=== PATIENT | female | born 1965 | race Caucasian/White ===

== ENCOUNTER 2017-01-01 10:31 | Day surgery (SDC) | payer MEDICARE, OTHER ==
[2016-12-27 15:17] VITALS: BMI 37.8
[~2017-01-01 10:31] MED LIST: LACTATED RINGERS 1,000 ML IV SCH; LIDOCAINE 1% 20 ML VIAL (10MG/ML) FOR IV START INTRADERMA PRN
[2017-01-01 11:55] VITALS: RESP 16; TEMP 97.9
[2017-01-01] MEDS ORDERED: PROPOFOL 10 MG/ML 20 ML VIAL IV ONE (13:36)
[2017-01-01] MEDS ORDERED: LIDOCAINE 1% INJ 10MG/ML (20 ML MDV) ONE (13:36)
--- NOTE | 2017-01-01 13:39 | P.GSHP ---
History of Present Illness H&P Date: 01/01/17 Chief Complaint: Epigastric pain, diarrhea [id number] female who presents today for EGD colonoscopy. She's had issues of epigastric pain and diarrhea and some left lower quadrant pain. - Constitutional Constitutional: Reports as per HPI Past Medical History Past Medical History: Asthma, COPD, Deep Vein Thrombosis (DVT), Eye Disorder, Fibromyalgia, GERD/Reflux, Hypertension, Osteoarthritis (OA), Rheumatoid Arthritis (RA), Skin Disorder, Sleep Apnea/CPAP/BIPAP Additional Past Medical History / Comment(s): gout, sarcoidosis, glaucoma, migraines, arrhythmia, no cpap used degenerative disk disease, spinal stenosis History of Any Multi-Drug Resistant Organisms: None Reported Past Surgical History: Cholecystectomy, Heart Catheterization Additional Past Surgical History / Comment(s): lung biopsy , LEG AND ABDOMEN BIOPSY Past Anesthesia/Blood Transfusion Reactions: No Reported Reaction Smoking Status: Current every day smoker - Past Family History Mother Family Medical History: COPD, GERD/Reflux, Hypertension, Osteoarthritis (OA) Additional Family Medical History / Comment(s): Mother is 77 yrs old. Father Family Medical History: Hypertension Additional Family Medical History / Comment(s): Father is an amputee of the R leg. Father is 73 yrs old. Brother(s) Family Medical History: Cancer Additional Family Medical History / Comment(s): leukemia Medications and Allergies Home Medications Medication Instructions Recorded Confirmed Type Atenolol [Tenormin] 25 mg PO BID 01/29/14 12/27/16 History Montelukast [Singulair] 10 mg PO DAILY 01/29/14 12/27/16 History Pantoprazole Sodium [Protonix] 40 mg PO BID 01/29/14 01/01/17 History Butalb/Acetaminophen/Caffeine 1 each PO Q12HR PRN 02/15/14 01/01/17 History [Fioricet 50-325-40 mg Tablet] amLODIPine [Norvasc] 10 mg PO DAILY 02/17/15 12/27/16 History Albuterol Nebulized [Ventolin 1 applicate INHALATION DAILY PRN 08/09/15 History Nebulized] Furosemide [Lasix] 20 mg PO DAILY PRN 08/09/15 01/01/17 History DULoxetine HCL [Cymbalta] 30 mg PO BID 12/27/16 01/01/17 History Fexofenadine HCl [Carolyn Allergy] 180 mg PO DAILY 12/27/16 01/01/17 History Levothyroxine Sodium [Synthroid] 50 mcg PO DAILY 12/27/16 12/27/16 History buPROPion HCL [Wellbutrin XL] 150 mg PO DAILY 12/27/16 01/01/17 History busPIRone HCl [Buspar] 10 mg PO BID 12/27/16 01/01/17 History Allergies Allergy/AdvReac Type Severity Reaction Status Date / Time adhesive Allergy Rash/Hives Verified 01/01/17 11:55 Penicillins Allergy Dyspnea, Verified 01/01/17 11:55 itchy, hives Sulfa (Sulfonamide Allergy Confusion, Verified 01/01/17 11:55 Antibiotics) high fever Surgical - Exam Vital Signs Temp Pulse Resp BP Pulse Ox 97.9 F 64 16 155/73 98 01/01/17 11:53 01/01/17 11:53 01/01/17 11:53 01/01/17 11:53 01/01/17 11:53 - General well developed, no distress - Eyes PERRL - Neck no masses - Respiratory normal expansion - Cardiovascular Rhythm: regular - Abdomen Abdomen: soft, non tender Assessment and Plan Plan: GERD, diarrhea, left lower quadrant pain. We'll perform EGD and colonoscopy.
--- NOTE | 2017-01-01 13:55 | P.OP ---
Date of Procedure: 01/01/17 Preoperative Diagnosis: GERD Diarrhea, left lower quadrant pain Postoperative Diagnosis: Antral gastritis Sliding hiatal hernia Mild esophagitis Procedure(s) Performed: EGD Colonoscopy Implants: Anesthesia: MAC Surgeon: Stevan Mckinley Pathology: other (Antrum, esophagus) Condition: stable Disposition: PACU Indications for Procedure: Operative Findings: Description of Procedure: The patient's placed on the endoscopy table in the lateral position. She received IV sedation. The gastroscope some placed oropharynx passed in the esophagus into the stomach. The scope was then placed through the pylorus. The first and second portion of the duodenum appeared normal. Scope was then brought back into the antrum and a biopsies performed. The antrum. Minimal inflamed. The scope was then retroflexed and the remainder of the stomach appeared normal. There was a small sliding hiatal hernia. The GE junction was at 38 cm the distal esophagus appeared inflamed and this was biopsied. The proximal esophagus appeared normal. The scope was withdrawn for patient. Next digital rectal exam was performed. There were a few minor internal and external hemorrhoids. The flexible colonoscope was then placed patient anus passed throughout the entire colon. The ileocecal valve was visualized. The cecum, ascending and transverse colon appeared normal. The descending colon was normal. In the sigmoid colon there were 2 small sessile polyps this was removed the forcep. The scope was then brought back into the rectum and this appeared normal. Scope was withdrawn for patient.
[2017-01-01 14:16] VITALS: BP 122/76; PULSE 62
== END 2017-01-01 14:30 | disposition home or self-care (01) ==
LOC: ORWHC2ENDO 10:31
PROVIDERS: ATTEND Surgery
DX: K29.50 Unspecified chronic gastritis without bleeding (principal); K21.0 Gastro-esophageal reflux disease with esophagitis; K44.9 Diaphragmatic hernia without obstruction or gangrene; K63.5 Polyp of colon; Z86.010 Personal history of colon polyps; J44.9 Chronic obstructive pulmonary disease, unspecified; Z86.718 Personal history of other venous thrombosis and embolism; M79.7 Fibromyalgia; I10 Essential (primary) hypertension; M19.90 Unspecified osteoarthritis, unspecified site; M06.9 Rheumatoid arthritis, unspecified; L98.9 Disorder of the skin and subcutaneous tissue, unspecified; E78.5 Hyperlipidemia, unspecified; G47.33 Obstructive sleep apnea (adult) (pediatric); M10.9 Gout, unspecified; H40.9 Unspecified glaucoma; E07.9 Disorder of thyroid, unspecified; F39 Unspecified mood [affective] disorder; G43.909 Migraine, unspecified, not intractable, without status migrainosus; I49.9 Cardiac arrhythmia, unspecified; F17.200 Nicotine dependence, unspecified, uncomplicated; Z79.899 Other long term (current) drug therapy; Z88.0 Allergy status to penicillin; Z88.2 Allergy status to sulfonamides; Z91.048 Other nonmedicinal substance allergy status
CPT/HCPCS: 88305; 88342; 45380; 43239; J2001; J2704

== ENCOUNTER → 2017-06-24 | Outpatient (CLI) | payer MEDICARE, OTHER ==
--- NOTE | 2017-06-24 10:06 | CT ---
EXAMINATION TYPE: CT abdomen pelvis w con DATE OF EXAM: 06/24/2017 HISTORY: Epigastric pain and nausea CT DLP: 1953.3mGycm Automated Exposure Control for Dose Reduction was Utilized. CONTRAST: CT scan of the abdomen and pelvis is performed with IV Contrast, patient injected with 100 mL of Omni paque 300. COMPARISON: 06/01/2015. FINDINGS: LUNG BASES: Minimally enlarged epicardial lymph node measures 1.2 cm in short axis. LIVER/GB: The hepatic parenchyma is coarsened and mildly heterogenous, most commonly relating to mild hepatic steatosis. Within segment IVb there is a focal wedge-shaped subcapsular area of enhancement without a well-circumscribed measurable mass. This is subtly appreciable on the exam of 06/01/2015 on series 3 image 26 in the same location and therefore this is either thought to relate to a benign fl macrina filling hemangioma or arterial portal shunt. PANCREAS: No significant abnormality is seen. No ductal dilatation. SPLEEN: No significant abnormality is seen. Small splenule is seen adjacent to the [place] spleen. No splenomegaly. ADRENALS: No significant abnormality is seen. No thickening or nodularity. KIDNEYS: Kidneys enhance and excrete symmetrically. BOWEL: No significant abnormality is seen. No evidence of obstruction. UTERUS/ADNEXA: Follicular changes are seen of the ovaries. Uterus is unremarkable. LYMPH NODES: 1.5 cm short axis lymph node is seen in the gastrohepatic ligament, retrospectively lakshmi lar to the exam of 2014. Portal caval lymph node is upper limits of normal measuring 9 mm, unchanged from the prior. Prominent periaortic lymph nodes measure up to 9 mm in short axis on series 3 image 3 6, again retrospectively unchanged from the exam of 2015. Few minimally enlarged lymph nodes anterior to the portal vein are also seen on series 3 image 26, also retrospectively unchanged and back to 20 15. Tiny nonenlarged lymph node in the hepatorenal fossa is also unchanged. OSSEOUS STRUCTURES: Grade 1 anterolisthesis of L4 on L5 is unchanged from the prior and likely degene rative. Mild multilevel degenerative changes of the osseous structures are noted. IMPRESSION: 1. No CT finding is seen to account for patient's clinical symptoms. 2. Coarsened and mildly heterogenous hepatic echotexture most commonly relating to mild hepatic steat osis. Correlate with LFTs. 3. Mildly prominent lymph nodes within the epiphrenic space and within the abdomen, retrospectively s imilar to the exam of 2015 and therefore favored to be benign. Correlation with CBC and differential is recommended to exclude low-grade lymphoma (considered unlikely).
== END | disposition home or self-care (01) ==
LOC: RADCTMAIN 07:39
PROVIDERS: ATTEND Family Medicine
DX: K76.89 Other specified diseases of liver (principal)
CPT/HCPCS: 74177; Q9967

== ENCOUNTER 2017-06-29 16:44 | Emergency (ER) | payer MEDICARE, OTHER ==
[2017-06-29 16:51] VITALS: RESP 18
[2017-06-29] MEDS ORDERED: IPRATROPIUM-ALBUTEROL 3 ML NEB INHALATION STA (17:46)
[2017-06-29] MEDS ORDERED: SODIUM CHLORIDE 0.9% 1,000 ML IV STA (17:46)
[2017-06-29] MEDS ORDERED: methylPREDNISolone SOD SUCCI 125 MG/2 ML VIAL IV STA (17:46)
--- NOTE | 2017-06-29 17:50 | ED ---
Abdominal Pain HPI - General Chief Complaint: Abdominal Pain Stated Complaint: Vomiting, Fever, Not eating Time Seen by Provider: 06/29/17 17:25 Source: patient, RN notes reviewed, old records reviewed Mode of arrival: ambulatory Limitations: no limitations - History of Present Illness Initial Comments: This patient is a 52-year-old female presented to emergency department stay chief complaint of 4 days of nausea, vomiting, diarrhea, productive cough. Patient reports that she had an outpatient computed tomography scan on Friday to check for a cause for her chronic epigastric abdominal pain. She reports that they were told her that everything was benign. Patient states that she has had chills, denies any specific fever. She is concerned she may have the flu. Patient's daughter reports that she had pneumonia a few weeks ago. Patient reports that she has a history of COPD and uses albuterol breathing treatments occasionally but does not use them frequently because it causes her heart to have palpitations. She does complain of some chest discomfort and heaviness. MD Complaint: abdominal pain - Related Data Home Medications Medication Instructions Recorded Confirmed Montelukast [Singulair] 10 mg PO DAILY 01/29/14 06/29/17 Pantoprazole Sodium [Protonix] 40 mg PO DAILY 01/29/14 06/29/17 Butalb/Acetaminophen/Caffeine 1 tab PO Q12HR PRN 02/15/14 06/29/17 [Fioricet 50-325-40 mg Tablet] amLODIPine [Norvasc] 10 mg PO DAILY 02/17/15 06/29/17 Albuterol Nebulized [Ventolin 1 applicate INHALATION DAILY PRN 08/09/15 06/29/17 Nebulized] Furosemide [Lasix] 20 mg PO DAILY PRN 08/09/15 06/29/17 DULoxetine HCL [Cymbalta] 30 mg PO BID 12/27/16 06/29/17 buPROPion HCL [Wellbutrin XL] 150 mg PO DAILY 12/27/16 06/29/17 busPIRone HCl [Buspar] 10 mg PO BID 12/27/16 06/29/17 Atenolol [Tenormin] 50 mg PO BID 06/29/17 06/29/17 Levothyroxine Sodium [Synthroid] 75 mcg PO DAILY 06/29/17 06/29/17 Modafinil [Provigil] 200 mg PO DAILY 06/29/17 06/29/17 Previous Rx's Medication Instructions Recorded Ipratropium-Albuterol Nebulize 3 ml INHALATION Q6H #20 neb 06/29/17 [Duoneb 0.5 mg-3 mg/3 ml Soln] Levofloxacin [Levaquin] 750 mg PO DAILY #5 tab 06/29/17 Ondansetron Odt [Zofran Odt] 4 mg PO Q8HR PRN #15 tab 06/29/17 predniSONE 50 mg PO DAILY #5 tablet 06/29/17 Allergies Allergy/AdvReac Type Severity Reaction Status Date / Time adhesive Allergy Rash/Hives Verified 06/29/17 17:50 Penicillins Allergy Dyspnea, Verified 06/29/17 17:50 itchy, hives Sulfa (Sulfonamide Allergy Confusion, Verified 06/29/17 17:50 Antibiotics) high fever Review of Systems ROS Statement: Those systems with pertinent positive or pertinent negative responses have been documented in the HPI. ROS Other: All systems not noted in ROS Statement are negative. Past Medical History Past Medical History: Asthma, COPD, Deep Vein Thrombosis (DVT), Eye Disorder, Fibromyalgia, GERD/Reflux, Hypertension, Osteoarthritis (OA), Rheumatoid Arthritis (RA), Skin Disorder, Sleep Apnea/CPAP/BIPAP Additional Past Medical History / Comment(s): gout, sarcoidosis, glaucoma, migraines, arrhythmia, no cpap used degenerative disk disease, spinal stenosis History of Any Multi-Drug Resistant Organisms: None Reported Past Surgical History: Cholecystectomy, Heart Catheterization Additional Past Surgical History / Comment(s): lung biopsy , LEG AND ABDOMEN BIOPSY Past Anesthesia/Blood Transfusion Reactions: No Reported Reaction Past Psychological History: Anxiety, Depression Smoking Status: Current every day smoker Past Alcohol Use History: Rare Past Drug Use History: Marijuana - Past Family History Mother Family Medical History: COPD, GERD/Reflux, Hypertension, Osteoarthritis (OA) Additional Family Medical History / Comment(s): Mother is 77 yrs old. Father Family Medical History: Hypertension Additional Family Medical History / Comment(s): Father is an amputee of the R leg. Father is 73 yrs old. Brother(s) Family Medical History: Cancer Additional Family Medical History / Comment(s): leukemia General Exam - General Exam Comments Initial Comments: 52-year-old female. No distress. Limitations: no limitations General appearance: alert, in no apparent distress Head exam: Present: atraumatic, normocephalic, normal inspection Eye exam: Present: normal appearance, PERRL, EOMI. Absent: scleral icterus, conjunctival injection, periorbital swelling ENT exam: Present: normal exam, mucous membranes moist. Absent: normal oropharynx Neck exam: Present: normal inspection, lymphadenopathy (Slightly erythematous oropharynx. Anterior cervical lymphadenopathy.). Absent: tenderness, meningismus Respiratory exam: Present: wheezes, rhonchi. Absent: normal lung sounds bilaterally, rales, stridor Cardiovascular Exam: Present: regular rate, normal rhythm, normal heart sounds. Absent: systolic murmur, diastolic murmur, rubs, gallop, clicks GI/Abdominal exam: Present: soft, tenderness (Minimal epigastric tenderness. No rebound or guarding noted.), normal bowel sounds. Absent: distended, guarding, rebound, rigid Extremities exam: Present: normal inspection, full ROM, normal capillary refill. Absent: tenderness, pedal edema, joint swelling, calf tenderness Back exam: Present: normal inspection Neurological exam: Present: alert, oriented X3, CN II-XII intact Psychiatric exam: Present: normal affect, normal mood Skin exam: Present: warm, dry, intact, normal color. Absent: rash Course Vital Signs 06/29/17 06/29/17 06/29/17 16:47 18:13 19:40 Temperature 98.6 F 98.3 F Pulse Rate 71 64 76 Respiratory 18 18 Rate Blood Pressure 137/65 146/74 O2 Sat by Pulse 98 94 L Oximetry - Reevaluation(s) Reevaluation #1: 06/29/17 19:51 Patient is reevaluated. Resting comfortably in bed. She reports she feels much better at this time. Medical Decision Making - Medical Decision Making This patient is a 52-year-old female presented to emergency department stay chief complaint of 4 days of nausea, vomiting, diarrhea, productive cough. Patient reports that she had an outpatient computed tomography scan on Friday to check for a cause for her chronic epigastric abdominal pain. She reports that they were told her that everything was benign. Patient states that she has had chills, denies any specific fever. Patient has no significant tenderness or guarding on exam of abdomen. She does have wheezing and rhonchi. Given duoneb treatment and CXR and labs obtaiend. CXR within normal limits. LAbs were reviewed and normal. Negative Influenza. PAtient gievn zofran tylenol and reports she feels better. She had improvement of wheezing and rhonchi after treatment. PAtient will be treated for COPD exacerbation and bronchitis with levaquin and Prednisone. Discussed patient could likely have viral sydome and gastritis related to vomiting nad diarrhea. All question answered, return parameters discussed. - Lab Data Result diagrams: 06/29/17 18:18 06/29/17 18:18 Lab Results 06/29/17 06/29/17 06/29/17 Range/Units 18:18 18:18 18:18 WBC 12.6 H (3.8-10.6) k/uL RBC 4.86 (3.80-5.40) m/uL Hgb 13.4 (11.4-16.0) gm/dL Hct 42.1 (34.0-46.0) % MCV 86.6 (80.0-100.0) fL MCH 27.5 (25.0-35.0) pg MCHC 31.8 (31.0-37.0) g/dL RDW 16.3 H (11.5-15.5) % Plt Count 302 (150-450) k/uL Neutrophils % 75 % Lymphocytes % 16 % Monocytes % 4 % Eosinophils % 2 % Basophils % 1 % Neutrophils # 9.5 H (1.3-7.7) k/uL Lymphocytes # 2.1 (1.0-4.8) k/uL Monocytes # 0.5 (0-1.0) k/uL Eosinophils # 0.2 (0-0.7) k/uL Basophils # 0.1 (0-0.2) k/uL Hypochromasia Slight Anisocytosis Slight PT (9.0-12.0) sec INR (<1.2) APTT (22.0-30.0) sec Sodium (137-145) mmol/L Potassium (3.5-5.1) mmol/L Chloride (98-107) mmol/L Carbon Dioxide (22-30) mmol/L Anion Gap mmol/L BUN (7-17) mg/dL Creatinine (0.52-1.04) mg/dL Est GFR (MDRD) Af Amer (>60 ml/min/1.73 sqM) Est GFR (MDRD) Non-Af (>60 ml/min/1.73 sqM) Glucose (74-99) mg/dL Plasma Lactic Acid Immanuel (0.7-2.0) mmol/L Calcium (8.4-10.2) mg/dL Magnesium (1.6-2.3) mg/dL Total Bilirubin (0.2-1.3) mg/dL AST (14-36) U/L ALT (9-52) U/L Alkaline Phosphatase (38-126) U/L Total Creatine Kinase 68 (30-135) U/L CK-MB (CK-2) 0.8 (0.0-2.4) ng/mL CK-MB (CK-2) Rel Index 1.2 Troponin I <0.012 (0.000-0.034) ng/mL NT-Pro-B Natriuret Pep pg/mL Total Protein (6.3-8.2) g/dL Albumin (3.5-5.0) g/dL Urine Color Urine Appearance (Clear) Urine pH (5.0-8.0) Ur Specific Boswell (1.001-1.035) Urine Protein (Negative) Urine Glucose (UA) (Negative) Urine Ketones (Negative) Urine Blood (Negative) Urine Nitrite (Negative) Urine Bilirubin (Negative) Urine Urobilinogen (<2.0) mg/dL Ur Leukocyte Esterase (Negative) Influenza Type A RNA Not Detected (Not Detectd) Influenza Type B (PCR) Not Detected (Not Detectd) 06/29/17 06/29/17 06/29/17 Range/Units 18:18 18:18 18:18 WBC (3.8-10.6) k/uL RBC (3.80-5.40) m/uL Hgb (11.4-16.0) gm/dL Hct (34.0-46.0) % MCV (80.0-100.0) fL MCH (25.0-35.0) pg MCHC (31.0-37.0) g/dL RDW (11.5-15.5) % Plt Count (150-450) k/uL Neutrophils % % Lymphocytes % % Monocytes % % Eosinophils % % Basophils % % Neutrophils # (1.3-7.7) k/uL Lymphocytes # (1.0-4.8) k/uL Monocytes # (0-1.0) k/uL Eosinophils # (0-0.7) k/uL Basophils # (0-0.2) k/uL Hypochromasia Anisocytosis PT (9.0-12.0) sec INR (<1.2) APTT (22.0-30.0) sec Sodium 140 (137-145) mmol/L Potassium 4.1 (3.5-5.1) mmol/L Chloride 104 (98-107) mmol/L Carbon Dioxide 24 (22-30) mmol/L Anion Gap 12 mmol/L BUN 9 (7-17) mg/dL Creatinine 1.01 (0.52-1.04) mg/dL Est GFR (MDRD) Af Amer >60 (>60 ml/min/1.73 sqM) Est GFR (MDRD) Non-Af 57 (>60 ml/min/1.73 sqM) Glucose 126 H (74-99) mg/dL Plasma Lactic Acid Immanuel 1.1 (0.7-2.0) mmol/L Calcium 9.8 (8.4-10.2) mg/dL Magnesium 1.8 (1.6-2.3) mg/dL Total Bilirubin 0.5 (0.2-1.3) mg/dL AST 26 (14-36) U/L ALT 26 (9-52) U/L Alkaline Phosphatase 178 H (38-126) U/L Total Creatine Kinase (30-135) U/L CK-MB (CK-2) (0.0-2.4) ng/mL CK-MB (CK-2) Rel Index Troponin I (0.000-0.034) ng/mL NT-Pro-B Natriuret Pep 201 pg/mL Total Protein 8.0 (6.3-8.2) g/dL Albumin 3.9 (3.5-5.0) g/dL Urine Color Urine Appearance (Clear) Urine pH (5.0-8.0) Ur Specific Boswell (1.001-1.035) Urine Protein (Negative) Urine Glucose (UA) (Negative) Urine Ketones (Negative) Urine Blood (Negative) Urine Nitrite (Negative) Urine Bilirubin (Negative) Urine Urobilinogen (<2.0) mg/dL Ur Leukocyte Esterase (Negative) Influenza Type A RNA (Not Detectd) Influenza Type B (PCR) (Not Detectd) 06/29/17 06/29/17 Range/Units 18:18 19:40 WBC (3.8-10.6) k/uL RBC (3.80-5.40) m/uL Hgb (11.4-16.0) gm/dL Hct (34.0-46.0) % MCV (80.0-100.0) fL MCH (25.0-35.0) pg MCHC (31.0-37.0) g/dL RDW (11.5-15.5) % Plt Count (150-450) k/uL Neutrophils % % Lymphocytes % % Monocytes % % Eosinophils % % Basophils % % Neutrophils # (1.3-7.7) k/uL Lymphocytes # (1.0-4.8) k/uL Monocytes # (0-1.0) k/uL Eosinophils # (0-0.7) k/uL Basophils # (0-0.2) k/uL Hypochromasia Anisocytosis PT 10.4 (9.0-12.0) sec INR 1.1 (<1.2) APTT 24.1 (22.0-30.0) sec Sodium (137-145) mmol/L Potassium (3.5-5.1) mmol/L Chloride (98-107) mmol/L Carbon Dioxide (22-30) mmol/L Anion Gap mmol/L BUN (7-17) mg/dL Creatinine (0.52-1.04) mg/dL Est GFR (MDRD) Af Amer (>60 ml/min/1.73 sqM) Est GFR (MDRD) Non-Af (>60 ml/min/1.73 sqM) Glucose (74-99) mg/dL Plasma Lactic Acid Immanuel (0.7-2.0) mmol/L Calcium (8.4-10.2) mg/dL Magnesium (1.6-2.3) mg/dL Total Bilirubin (0.2-1.3) mg/dL AST (14-36) U/L ALT (9-52) U/L Alkaline Phosphatase (38-126) U/L Total Creatine Kinase (30-135) U/L CK-MB (CK-2) (0.0-2.4) ng/mL CK-MB (CK-2) Rel Index Troponin I (0.000-0.034) ng/mL NT-Pro-B Natriuret Pep pg/mL Total Protein (6.3-8.2) g/dL Albumin (3.5-5.0) g/dL Urine Color Yellow Urine Appearance Clear (Clear) Urine pH 5.5 (5.0-8.0) Ur Specific Boswell 1.002 (1.001-1.035) Urine Protein Negative (Negative) Urine Glucose (UA) Negative (Negative) Urine Ketones Negative (Negative) Urine Blood Negative (Negative) Urine Nitrite Negative (Negative) Urine Bilirubin Negative (Negative) Urine Urobilinogen 0.2 (<2.0) mg/dL Ur Leukocyte Esterase Negative (Negative) Influenza Type A RNA (Not Detectd) Influenza Type B (PCR) (Not Detectd) 06/29/17 18:08 EKG shows normal sinus rhythm. Ventricular rate of 67 bpm. AR interval 200 ms. QRS duration 86 ms. QT QTc is 404/426 ms. No evidence of ST elevation or T-wave inversion. No evidence of intraventricular ventricular arrhythmias. - Radiology Data Radiology results: report reviewed Patient CT from [address] findings to account the patient's clinical symptoms. Coarse and lateral head tenderness hepatic echotexture is most commonly related to mild hepatic steatosis. Correlate with LFTs. Mildly prominent lymph nodes with some epinephrine next pain within the abdomen. Retrospectively similar to examine 2015. Therefore favor to be benign. Correlation with CBC and differential is recommended to exclude low-grade lymphoma. Disposition Clinical Impression: Bronchitis, Nausea & vomiting Disposition: HOME SELF-CARE Condition: Good Instructions: Acute Bronchitis (ED) Additional Instructions: Patient denies to take the medications as prescribed, use your breathing treatments machine at home for continued cough. Continue to take Motrin and Tylenol for pain and fevers. Patient should use the Zofran medicine for nausea. Follow-up with PCP. Return to the emergency department if any alarming signs or symptoms occur. Prescriptions: Ipratropium-Albuterol Nebulize [Duoneb 0.5 mg-3 mg/3 ml Soln] 3 ml INHALATION Q6H #20 neb Levofloxacin [Levaquin] 750 mg PO DAILY #5 tab Ondansetron Odt [Zofran Odt] 4 mg PO Q8HR PRN #15 tab PRN Reason: Pain predniSONE 50 mg PO DAILY #5 tablet Referrals: Arianna Lopes DO [Primary Care Provider] - 1-2 days Time of Disposition: 20:36
[2017-06-29] MEDS ORDERED: ACETAMINOPHEN TAB 500 MG TAB PO STA (18:39)
[2017-06-29] MEDS ORDERED: IBUPROFEN 600 MG TAB PO STA (18:39)
--- NOTE | 2017-06-29 18:40 | XR ---
EXAMINATION TYPE: XR chest 2V DATE OF EXAM: 06/29/2017 COMPARISON: January 29, 2014 HISTORY: Fever. TECHNIQUE: Frontal and lateral views of the chest are obtained. FINDINGS: There is no focal air space opacity, pleural effusion, or pneumothorax seen. The cardiac silhouette size is within normal limits. The osseous structures are intact. IMPRESSION: No acute cardiopulmonary process.
[2017-06-29 18:44] LABS: Anisocytosis Slight; Basophils # (A) 0.1 k/uL (0-0.2); Basophils % (A) 1 %; Eosinophils # (A) 0.2 k/uL (0-0.7); Eosinophils % (A) 2 %; HCT 42.1 % (34.0-46.0); HGB 13.4 gm/dL (11.4-16.0); Hypochromasia Slight; Lymphocytes # (A) 2.1 k/uL (1.0-4.8); Lymphocytes % (A) 16 %; MCH 27.5 pg (25.0-35.0); MCHC 31.8 g/dL (31.0-37.0); MCV 86.6 fL (80.0-100.0); Mean Platelet Volume 8.3; Monocytes # (A) 0.5 k/uL (0-1.0); Monocytes % (A) 4 %; Neutrophils # (A) 9.5 k/uL (1.3-7.7); Neutrophils % (A) 75 %; Platelet Count 302 k/uL (150-450); RBC 4.86 m/uL (3.80-5.40); RDW 16.3 % (11.5-15.5); WBC 12.6 k/uL (3.8-10.6)
[2017-06-29] MEDS ORDERED: ONDANSETRON 4 MG/2 ML VIAL IVP STA (18:47)
[2017-06-29 18:58] LABS: INR 1.1 (<1.2); Partial Thromboplastin Time 24.1 sec (22.0-30.0); Prothrombin Time 10.4 sec (9.0-12.0)
[2017-06-29 18:59] LABS: ALT 26 U/L (9-52); AST 26 U/L (14-36); Albumin 3.9 g/dL (3.5-5.0); Alkaline Phosphatase 178 U/L (38-126); Anion Gap 12 mmol/L; Blood Urea Nitrogen 9 mg/dL (7-17); Calcium 9.8 mg/dL (8.4-10.2); Carbon Dioxide 24 mmol/L (22-30); Chloride 104 mmol/L (98-107); Glucose 126 mg/dL (74-99); Magnesium 1.8 mg/dL (1.6-2.3); Potassium 4.1 mmol/L (3.5-5.1); Sodium 140 mmol/L (137-145); Total Bilirubin 0.5 mg/dL (0.2-1.3)
[2017-06-29 19:09] LABS: Creatine Kinase 68 U/L (30-135)
[2017-06-29 19:23] LABS: Creatine Kinase MB 0.8 ng/mL (0.0-2.4); Troponin I <0.012 ng/mL (0.000-0.034)
[2017-06-29 19:41] VITALS: BP 146/74; PULSE 76; TEMP 98.3
[2017-06-29 20:24] LABS: Appearance,Urine Clear (Clear); Color,Urine Yellow; Glucose,Urine (UA) Negative (Negative); PH, Urine 5.5 (5.0-8.0); Protein,Urine Negative (Negative); Specific Gravity,Urine 1.002 (1.001-1.035)
[2017-06-29 20:25] LABS: Bilirubin,Urine Negative (Negative); Blood,Urine Negative (Negative); Ketones,Urine Negative (Negative); Leukocyte Esterase,Urine Negative (Negative); Nitrite,Urine Negative (Negative); Urobilinogen,Urine 0.2 mg/dL (<2.0)
== END 2017-06-29 20:52 | disposition home or self-care (01) ==
LOC: EC 16:44
DX: J40 Bronchitis, not specified as acute or chronic (principal); R11.2 Nausea with vomiting, unspecified; R19.7 Diarrhea, unspecified; R10.13 Epigastric pain; G89.29 Other chronic pain; R59.0 Localized enlarged lymph nodes; I10 Essential (primary) hypertension; J44.9 Chronic obstructive pulmonary disease, unspecified; K21.9 Gastro-esophageal reflux disease without esophagitis; G47.30 Sleep apnea, unspecified; F32.9 Major depressive disorder, single episode, unspecified; F41.9 Anxiety disorder, unspecified; F17.200 Nicotine dependence, unspecified, uncomplicated; Z79.899 Other long term (current) drug therapy; Z88.0 Allergy status to penicillin; Z88.2 Allergy status to sulfonamides; Z91.09 Other allergy status, other than to drugs and biological substances; Z87.01 Personal history of pneumonia (recurrent); Z90.49 Acquired absence of other specified parts of digestive tract; Z82.5 Family history of asthma and other chronic lower respiratory diseases
CPT/HCPCS: 36415; 94640; 93005; 83880; 80053; 82550; 82553; 83605; 83735; 84484; 85025; 85610; 85730; 81003; 87040; 87502; 71046; 99284; 96374; 96375; 96361 ×3; J2930; J2405

== ENCOUNTER → 2017-07-21 | Outpatient (CLI) | payer MEDICARE, OTHER ==
--- NOTE | 2017-07-21 12:17 | FL ---
EXAMINATION TYPE: FL barium swallow w video DATE OF EXAM: 07/21/2017 COMPARISON: NONE HISTORY: Esophagitis swollen glands. Scar tissue TECHNIQUE: Fluoroscopy. FINDINGS: Fluoroscopic guidance was provided for the procedure performed in conjunction with the [facility] [place] pathology department. Please see complete report forthcoming from the Speech Pathology departmen t. Various consistencies from thin liquid to solids were administered. Fluoroscopy time 1 minute 15 seconds Number of images: 0. No aspiration or penetration was evident. No significant pooling was observed in the vallecula. There was normal propulsion of the bolus. Observation of the swallowing from the esophagus to the stomach was performed with cracker chris km ds. Small bolus appears to hang up within the mid esophagus without stenosis. This transits to the ga stroesophageal junction without hesitancy with thin liquid. A complete esophagram could be performed if additional evaluation is required. IMPRESSION: 1. Normal modified barium swallow.
== END | disposition home or self-care (01) ==
LOC: RADFLMAIN 11:18
PROVIDERS: ATTEND Physician Assistant
DX: K20.9 Esophagitis, unspecified (principal); Z88.2 Allergy status to sulfonamides
CPT/HCPCS: 74230

== ENCOUNTER 2017-10-21 10:13 | Day surgery (SDC) | payer MEDICARE, OTHER ==
[2017-10-17 14:26] VITALS: BMI 36.3
[~2017-10-21 10:13] MED LIST changes: +ONDANSETRON 4 MG/2 ML VIAL IVP PRN
[2017-10-21] MEDS: CYCLOPENTOLATE 1% OPHTH SOLN 2 ML BTL OP ONE ×3 (11:15→11:33)
[2017-10-21 11:16] VITALS: RESP 16; TEMP 97.2
[2017-10-21] MEDS: FLURBIPROFEN 0.03% OPHTH DROPS 2.5 ML BTL OP ONE ×3 (11:18→11:36)
[2017-10-21] MEDS: PHENYLEPHRINE 10% OPHTH DROPS 5 ML BTL OP ONE ×3 (11:21→11:40)
[2017-10-21] MEDS ORDERED: PROPOFOL 10 MG/ML 20 ML VIAL IV ONE (11:57)
[2017-10-21] MEDS ORDERED: LIDOCAINE 1% INJ 10MG/ML (20 ML MDV) ONE (11:57)
[2017-10-21] MEDS ORDERED: TIMOLOL 0.5% OPHTH SOLN (PF) 0.2 ML DROPERETTE RIGHT EYE ONE (11:58)
[2017-10-21] MEDS ORDERED: BALANCED SALT IRRIG SOLN COMB2 15 ML IRRIG.SOLN INTRAOCULA ONE (11:58)
[2017-10-21] MEDS ORDERED: HYALURONATE SODIUM INTRAOCULAR 1 EACH SYRINGE (10MG/ML) INTRAOCULA ONE (11:58)
[2017-10-21] MEDS ORDERED: EPINEPHrine (PF) 0.5 ML in BALANCED SALT IRRIG SOLN COMB2 500 ML IRRIGATION ONE (12:02)
--- NOTE | 2017-10-21 12:22 | P.OP ---
Date of Procedure: 10/21/17 Procedure(s) Performed: PREOPERATIVE DIAGNOSIS: Cataract, right eye. POSTOPERATIVE DIAGNOSIS: Cataract, right eye. OPERATION: Phacoemulsification cataract, right eye. DESCRIPTION OF PROCEDURE: The patient was taken to the preoperative holding area. Intravenous Propofol was given so as to bring about adequate sedation. The following mixture was given for local anesthesia: 5 mL of 2% lidocaine, 5 mL of 0.75% Marcaine, and 1 mL of Wydase. Approximately 4 mL was injected in the retrobulbar space of the surgical eye. Additional 1 mL was then directed to the temporal area of the surgical eye. This was performed to allow adequate neurological block of the facial muscles. The patient was revived and then taken into the operative room. The patient was prepped and draped in the usual sterile manner for the operative eye. A lid speculum was put into position. The conjunctiva was resected back from the limbus in the 12 o'clock position. Bleeding was controlled with electrocautery. A #69 blade was then used and a half-thickness scleral incision approximately 1-mm posterior to the limbus was made on bare sclera. This was shelved in the clear cornea using a crescent knife. Next a 15-degree blade was used to make a stab incision at the 3 o' clock position at the corneolimbal interface. Keratome blade was then used and the superior wound was extended into the anterior chamber. Viscoelastic was injected into the anterior chamber and to maintain its form. Next, a cystotome was used and a continuous anterior capsulotomy was made without difficulty. Hydrodissection using a blunt cannula and BSS was performed. Phaco probe was then employed and a groove extending from 12 to 6 o'clock in the lens was created. A Gonsalo wand was used through the stab incision so as to perform a divide and conquer technique. Next an irrigation aspiration probe was utilized and any residual cortex was removed from the eye. Again, viscoelastic was injected into the anterior chamber. An Vern posterior chamber lens implant was placed in the cartridge and injected into the anterior chamber without difficulty. The SinSporterpilotey hook was utilized to spin the lens into position and this was again performed without any difficulty. The irrigation and aspiration probe was again employed and any residual viscoelastic was removed from the eye. Then BSS was injected into the limbal stab incision and the anterior chamber re-inflated. The conjunctiva was reapproximated using electrocautery. One drop of 0.25% Timoptic was placed over the corneal along with TobraDex ophthalmic ointment. Two sterile patches and a Gustafson eye shield were taped into position. The patient was transported to the recovery room in stable condition. Pathology: none sent Condition: stable Disposition: same day
[2017-10-21] MEDS ORDERED: ACETAMINOPHEN TAB 325 MG TAB PO ONE (12:45)
[2017-10-21 12:46] VITALS: BP 129/67; PULSE 59
[2017-10-21] MEDS ORDERED: GENTAMICIN/PREDNISOL AC OPHTH OINT 3.5GM OPHTHALMIC ONE (23:00)
[2017-10-21] MEDS ORDERED: TIMOLOL 0.5% OPHTH DROPS 5 ML BTL OP ONE (23:00)
[2017-10-21] MEDS ORDERED: BUPIVACAINE (PF) 0.75% 5 ML, HYALURONIDASE, HUMAN RECOMB 150 UNIT, LIDOCAINE 2% (PF) 10... MISCELLANE ONE ×3 (23:00)
== END 2017-10-21 13:17 | disposition home or self-care (01) ==
LOC: OR 10:13
PROVIDERS: ATTEND Ophthalmology
DX: H25.11 Age-related nuclear cataract, right eye (principal); H40.059 Ocular hypertension, unspecified eye; J45.909 Unspecified asthma, uncomplicated; E07.9 Disorder of thyroid, unspecified; K21.9 Gastro-esophageal reflux disease without esophagitis; I25.2 Old myocardial infarction; F17.200 Nicotine dependence, unspecified, uncomplicated; Z88.0 Allergy status to penicillin; Z88.2 Allergy status to sulfonamides; Z91.048 Other nonmedicinal substance allergy status; Z79.890 Hormone replacement therapy; Z79.899 Other long term (current) drug therapy
CPT/HCPCS: 66984; V2632; J3470; J2001 ×2; J0171; J2704

== ENCOUNTER → 2018-01-06 | Day surgery (SDC) | payer MEDICARE, OTHER ==
[2017-12-30 10:50] VITALS: BMI 37.4
[~2018-01-06] MED LIST changes: +BALANCED SALT IRRIG SOLN COMB2 15 ML IRRIG.SOLN INTRAOCULA ONE; +BALANCED SALT IRRIG SOLN COMB2 15 ML IRRIG.SOLN IRRIGATION ONE; +BUPIVACAINE (PF) 0.75% 5 ML, HYALURONIDASE, HUMAN RECOMB 150 UNIT, LIDOCAINE 2% (PF) 10... MISCELLANE ONE; +EPINEPHrine (PF) 0.5 ML in BALANCED SALT IRRIG SOLN COMB2 500 ML IRRIGATION ONE; +GENTAMICIN/PREDNISOL AC OPHTH OINT 3.5GM OPHTHALMIC ONE; +HYALURONATE SODIUM INTRAOCULAR 1 EACH SYRINGE (10MG/ML) INTRAOCULA ONE; +LIDOCAINE 1% (PF) 10MG/ML VIAL SQ ONE; +LIDOCAINE 1% 20 ML VIAL (10MG/ML) FOR IV START INTRADERMA ONE; -LIDOCAINE 1% 20 ML VIAL (10MG/ML) FOR IV START INTRADERMA PRN; -ONDANSETRON 4 MG/2 ML VIAL IVP PRN; +PROPOFOL 10 MG/ML 20 ML VIAL IV ONE; +TIMOLOL 0.5% OPHTH DROPS 5 ML BTL OP ONE
[2018-01-06] MEDS: PHENYLEPHRINE 10% OPHTH DROPS 5 ML BTL OP ONE ×4 (07:59→08:22)
[2018-01-06] MEDS: CYCLOPENTOLATE 1% OPHTH SOLN 2 ML BTL OP ONE ×3 (08:08→08:14)
[2018-01-06] MEDS: FLURBIPROFEN 0.03% OPHTH DROPS 2.5 ML BTL OP ONE ×2 (08:17→08:23)
[2018-01-06 08:20] VITALS: TEMP 98.6
--- NOTE | 2018-01-06 09:40 | P.OP ---
Date of Procedure: 01/06/18 Procedure(s) Performed: PREOPERATIVE DIAGNOSIS: Cataract, left eye. POSTOPERATIVE DIAGNOSIS: Cataract, left eye. OPERATION: Phacoemulsification cataract, left eye. DESCRIPTION OF PROCEDURE: The patient was taken to the preoperative holding area. Intravenous Propofol was given so as to bring about adequate sedation. The following mixture was given for local anesthesia: 5 mL of 2% lidocaine, 5 mL of 0.75% Marcaine, and 1 mL of Wydase. Approximately 4 mL was injected in the retrobulbar space of the surgical eye. Additional 1 mL was then directed to the temporal area of the surgical eye. This was performed to allow adequate neurological block of the facial muscles. The patient was revived and then taken into the operative room. The patient was prepped and draped in the usual sterile manner for the operative eye. A lid speculum was put into position. The conjunctiva was resected back from the limbus in the 12 o'clock position. Bleeding was controlled with electrocautery. A #69 blade was then used and a half-thickness scleral incision approximately 1-mm posterior to the limbus was made on bare sclera. This was shelved in the clear cornea using a crescent knife. Next a 15-degree blade was used to make a stab incision at the 3 o' clock position at the corneolimbal interface. Keratome blade was then used and the superior wound was extended into the anterior chamber. Viscoelastic was injected into the anterior chamber and to maintain its form. Next, a cystotome was used and a continuous anterior capsulotomy was made without difficulty. Hydrodissection using a blunt cannula and BSS was performed. Phaco probe was then employed and a groove extending from 12 to 6 o'clock in the lens was created. A Gonsalo wand was used through the stab incision so as to perform a divide and conquer technique. Next an irrigation aspiration probe was utilized and any residual cortex was removed from the eye. Again, viscoelastic was injected into the anterior chamber. An Vern posterior chamber lens implant was placed in the cartridge and injected into the anterior chamber without difficulty. The Sinhotelsmap.comey hook was utilized to spin the lens into position and this was again performed without any difficulty. The irrigation and aspiration probe was again employed and any residual viscoelastic was removed from the eye. Then BSS was injected into the limbal stab incision and the anterior chamber re-inflated. The conjunctiva was reapproximated using electrocautery. One drop of 0.25% Timoptic was placed over the corneal along with TobraDex ophthalmic ointment. Two sterile patches and a Gustafson eye shield were taped into position. The patient was transported to the recovery room in stable condition. Pathology: none sent Condition: stable Disposition: same day
[2018-01-06 09:45] VITALS: RESP 18
[2018-01-06 10:00] VITALS: BP 125/82; PULSE 61
== END | disposition home or self-care (01) ==
LOC: OR 07:19
PROVIDERS: ATTEND Ophthalmology
DX: H25.12 Age-related nuclear cataract, left eye (principal); H40.059 Ocular hypertension, unspecified eye; I25.10 Atherosclerotic heart disease of native coronary artery without angina pectoris; I10 Essential (primary) hypertension; E07.9 Disorder of thyroid, unspecified; D86.9 Sarcoidosis, unspecified; F17.210 Nicotine dependence, cigarettes, uncomplicated; M79.7 Fibromyalgia; M06.9 Rheumatoid arthritis, unspecified; K21.9 Gastro-esophageal reflux disease without esophagitis; Z79.890 Hormone replacement therapy; Z79.891 Long term (current) use of opiate analgesic; Z79.899 Other long term (current) drug therapy; Z88.0 Allergy status to penicillin; Z88.2 Allergy status to sulfonamides; Z91.09 Other allergy status, other than to drugs and biological substances
CPT/HCPCS: 66984; V2632; J3470; J2001 ×2; J0171; J2704

== ENCOUNTER → 2018-04-20 | Outpatient (CLI) | payer MEDICARE, OTHER | END | disposition home or self-care (01) | LOC: LABWHC1 08:36 | PROVIDERS: ATTEND Physician Assistant | DX: D86.9 Sarcoidosis, unspecified (principal); Z92.241 Personal history of systemic steroid therapy | CPT/HCPCS: 36415; 82533 ==

== ENCOUNTER 2023-05-27 15:59 | Inpatient (IN) | payer MEDICARE, OTHER ==
[2023-05-27] MEDS ORDERED: ASPIRIN 81 MG PO STA (16:46)
[2023-05-27] MEDS ORDERED: DILTIAZEM 5 MG/ML 5 ML VIAL IVP STA (16:46)
[2023-05-27] MEDS ORDERED: DILTIAZEM 125 MG in SODIUM CHLORIDE 0.9% 100 ML IV SCH (17:15)
[2023-05-27 17:29] LABS: Basophils # (A) 0.1 k/uL (0-0.2); Basophils % (A) 1 %; Eosinophils # (A) 0.3 k/uL (0-0.7); Eosinophils % (A) 2 %; HCT 39.1 % (34.0-46.0); HGB 12.6 gm/dL (11.4-16.0); Lymphocytes # (A) 2.3 k/uL (1.0-4.8); Lymphocytes % (A) 18 %; MCH 28.2 pg (25.0-35.0); MCHC 32.2 g/dL (31.0-37.0); MCV 87.5 fL (80.0-100.0); Mean Platelet Volume 9.5; Monocytes # (A) 0.5 k/uL (0-1.0); Monocytes % (A) 4 %; Neutrophils # (A) 9.8 k/uL (1.3-7.7); Neutrophils % (A) 75 %; Platelet Count 232 k/uL (150-450); RBC 4.47 m/uL (3.80-5.40); RDW 14.6 % (11.5-15.5); WBC 13.2 k/uL (3.8-10.6)
--- NOTE | 2023-05-27 17:41 | ED ---
Chest Pain HPI - General Chief Complaint: Chest Pain Stated Complaint: Chest Pain,Sob-AFIB Time Seen by Provider: 05/27/23 16:37 Source: patient Mode of arrival: ambulatory Limitations: no limitations - History of Present Illness Initial Comments: This 58-year-old female presents with complaint of some left-sided chest pain, shortness breath, and fatigue. This is been present over the last day or 2 yard she denies recurrent palpitations but may have had slight palpitations recently. She denies any fevers or chills. She does relate that she was diagnosed with atrial fibrillation recently by her meat boner and slicer. They also felt as though she would require a heart catheterization this is scheduled for 3 days from now. She denies any leg pain or swelling. The chest pain is described as a pressure and is nonradiating. She was placed on Eliquis for her atrial fibrillation. She also currently is on a beta cindy. She denies any fevers or chills. No other complaints or modifying factors. - Related Data Home Medications Medication Instructions Recorded Confirmed Montelukast [Singulair] 10 mg PO QAM 01/29/14 12/30/17 Pantoprazole Sodium [Protonix] 40 mg PO DAILY 01/29/14 12/30/17 Butalb/Acetaminophen/Caffeine 1 tab PO Q12HR PRN 02/15/14 01/06/18 [Fioricet 50-325-40 mg Tablet] amLODIPine [Norvasc] 10 mg PO DAILY 02/17/15 12/30/17 Albuterol Nebulized [Ventolin 1 applicate INHALATION DAILY PRN 08/09/15 12/30/17 Nebulized] Furosemide [Lasix] 20 mg PO DAILY PRN 08/09/15 01/06/18 DULoxetine HCL [Cymbalta] 30 mg PO BID 12/27/16 12/30/17 buPROPion HCL [Wellbutrin XL] 150 mg PO BID 12/27/16 12/30/17 busPIRone HCl [Buspar] 10 mg PO BID PRN 12/27/16 12/30/17 Levothyroxine Sodium [Synthroid] 75 mcg PO DAILY 06/29/17 12/30/17 atenoloL [Tenormin] 50 mg PO BID 06/29/17 12/30/17 ARIPiprazole [Abilify] 2 mg PO HS 10/17/17 01/06/18 Ondansetron Odt [Zofran Odt] 4 mg PO Q8HR PRN 12/30/17 01/06/18 Allergies Allergy/AdvReac Type Severity Reaction Status Date / Time adhesive Allergy Rash/Hives Verified 05/27/23 16:20 Penicillins Allergy Dyspnea, Verified 05/27/23 16:20 itchy, hives Sulfa (Sulfonamide Allergy Confusion, Verified 05/27/23 16:20 Antibiotics) high fever Review of Systems ROS Statement: Those systems with pertinent positive or pertinent negative responses have been documented in the HPI. ROS Other: All systems not noted in ROS Statement are negative. Past Medical History Past Medical History: Atrial Fibrillation, Asthma, Deep Vein Thrombosis (DVT), Eye Disorder, Fibromyalgia, GERD/Reflux, Hypertension, Pneumonia, Rheumatoid Arthritis (RA), Skin Disorder, Sleep Apnea/CPAP/BIPAP, Thyroid Disorder Additional Past Medical History / Comment(s): gout, sarcoidosis, glaucoma, NO CURRENT MEDS FOR GLAUCOMA, migraines, HX arrhythmia, no cpap used, degenerative disk disease, spinal stenosis, constipation, hx ulcer, hiatal hernia, dry spots and skin irritation- sores on legs erythemia nodosum History of Any Multi-Drug Resistant Organisms: None Reported Past Surgical History: Cholecystectomy, Heart Catheterization Additional Past Surgical History / Comment(s): lung biopsy, LEG AND ABDOMEN BIOPSY, rt cataract Past Anesthesia/Blood Transfusion Reactions: No Reported Reaction Past Psychological History: Anxiety, Depression Smoking Status: Current some day smoker Past Alcohol Use History: Rare Past Drug Use History: Marijuana - Past Family History Mother Family Medical History: COPD, GERD/Reflux, Hypertension, Osteoarthritis (OA) Additional Family Medical History / Comment(s): Mother is 77 yrs old. Father Family Medical History: Hypertension Additional Family Medical History / Comment(s): Father is an amputee of the R leg. Father is 73 yrs old. Brother(s) Family Medical History: Cancer Additional Family Medical History / Comment(s): leukemia General Exam - General Exam Comments Initial Comments: GENERAL: The patient is well nourished and well hydrated. VITAL SIGNS: Heart rate, blood pressure, respiratory rate reviewed as recorded in nurse's notes. EYES: Pupils are round and reactive. Extraocular movements are intact. No conjunctival / lid redness or swelling. ENT: No external evidence of injury, swelling, or ecchymosis. Airway is patent. Throat is clear. NECK: Nontender. No swelling or evidence of injury. No subcutaneous emphysema. Trachea is midline. No thyroid mass. HEART: Tachycardic irregular rhythm. Good peripheral pulses. LUNGS/CHEST: Breath sounds clear and equal bilaterally. No rales, rhonchi, or wheezes. No ecchymosis, subcutaneous emphysema, or tenderness. ABDOMEN: Abdomen soft without tenderness. No palpable masses or organomegaly. No peritoneal signs. No abdominal wall swelling or ecchymosis. EXTREMITIES: No extremity tenderness. Normal muscle tone and function. No thoracolumbar tenderness. NEUROLOGIC: Sensation is grossly intact. Cranial nerve exam reveals face is symmetrical, tongue is midline, speech is clear. SKIN: No abrasions or ecchymosis is noted. No induration or masses noted. PSYCHIATRIC: Alert and oriented. Appropriate behavior and judgment. Limitations: no limitations Course Vital Signs 05/27/23 05/27/23 16:16 17:11 Temperature 98 F Pulse Rate 92 113 H Respiratory 18 20 Rate Blood Pressure 131/81 145/105 O2 Sat by Pulse 98 96 Oximetry Chest Pain MDM - MDM The patient was seen and examined. All diagnostics are reviewed. IV is established and she is placed on the monitor car operator which does show an irregular tachycardic rhythm at approximately 1:30. EKG shows atrial fibrill ation with rapid ventricular response with heart rate of 139. There is no acute ST or T wave changes noted per my interpretation. The QRS and QTC intervals are normal per my interpretation. Patient receives a Cardizem intravenously for her atrial fibrillation with rapid ventricular response. The chest x-ray does show evidence of cardiomegaly with pulmonary fibrotic changes per my interpretation and radiologist interpretation. CBC is stable with slight leukocytosis. INR stable. The laboratory does show significant elevation of the BNP. Patient is feeling somewhat improved on recheck but is still in atrial fibrillation with rapid ventricular response. It is felt as though she would benefit from admission to the hospital with cardiology to consult. Patient and family are agreeable. Was pt. sent in by a medical professional or institution (, PA, DOUBLE NEEDLE OPERATOR LOCKSTITCH, urgent care, hospital, or shelter...) When possible be specific @ -[No] Did you speak to anyone other than the patient for history (EMS, parent, family, police, friend...)? What history was obtained from this source @ -Patient's family is also in the room and does give additional history. Did you review nursing and triage notes (agree or disagree)? Why? @ -[I reviewed and agree with nursing and triage notes] Were old charts reviewed (outside hosp., previous admission, EMS record, old EKG, old radiological studies, urgent care reports/EKG's, shelter records)? Report findings @ -Charts are reviewed in additional past medical history is obtained. Differential Diagnosis (chest pain, altered mental status, abdominal pain women, abdominal pain men, vaginal bleeding, weakness, fever, dyspnea, syncope, headache, dizziness, GI bleed, back pain, seizure, CVA, palpatations, mental health, musculoskeletal)? @ -Acute coronary syndrome, myocardial infarction, unstable angina, atrial fibrillation with rapid ventricular response, dyspnea, weakness, congestive heart failure. EKG interpreted by me (3pts min.). @ -[As above] X-rays interpreted by me (1pt min.). @ -As above CT interpreted by me (1pt min.). @ -[None done] U/S interpreted by me (1pt. min.). @ -[None done] What testing was considered but not performed or refused? (CT, X-rays, U/S, labs)? Why? @ -[None] What meds were considered but not given or refused? Why? @ -[None] Did you discuss the management of the patient with other professionals (professionals i.e. , PA, DOUBLE NEEDLE OPERATOR LOCKSTITCH, lab, RT, psych nurse, manager social services, welfare interviewer, teacher, first aid officer, supervisor case loading)? Give summary @ -Case is discussed with internal medicine and they're agreeable with admission. Was smoking cessation discussed for >3mins.? @ -[No] Was critical care preformed (if so, how long)? @ -30 minutes of critical care time was performed and the treatment of the patient. Were there social determinants of health that impacted care today? How? (Homelessness, low income, unemployed, alcoholism, drug addiction, transportation, low edu. Level, literacy, decrease access to med. care, [place] [facility], rehab)? @ -[No] Was there de-escalation of care discussed even if they declined (Discuss DNR or withdrawal of care, Hospice)? DNR status @ -[No] What co-morbidities impacted this encounter? (DM, HTN, Smoking, COPD, CAD, Cancer, CVA, ARF, Chemo, Hep., AIDS, mental health diagnosis, sleep apnea, morbid obesity)? @ -Atrial fibrillation Was patient admitted / discharged? Hospital course, mention meds given and route, prescriptions, significant lab abnormalities, going to OR and other pertinent info. @ -She was admitted to the hospital, please see above. Undiagnosed new problem with uncertain prognosis? @ -[No] Drug Therapy requiring intensive monitoring for toxicity (Heparin, Nitro, Insulin, Cardizem)? @ -[No] Were any procedures done? @ -[No] Diagnosis/symptom? @ -Atrial fibrillation with rapid ventricular response, weakness, dyspnea, chest pain Acute, or Chronic, or Acute on Chronic? @ -Acute on chronic Uncomplicated (without systemic symptoms) or Complicated (systemic symptoms)? @ -Uncomplicated Side effects of treatment? @ -[No] Exacerbation, Progression, or Severe Exacerbation? @ -Exacerbation Poses a threat to life or bodily function? How? (Chest pain, [place], NH, pneumonia, PE, COPD, DKA, ARF, appy, cholecystitis, CVA, Diverticulitis, Homicidal, Suicidal, threat to staff... and all critical care pts) @ -Potentially yes. Disposition Clinical Impression: Atrial fibrillation with rapid ventricular response, Chest pain, Dyspnea Disposition: ADMITTED IP TO THIS [facility] Condition: Fair Is patient prescribed a controlled substance at d/c from ED?: No Time of Disposition: 17:40 Decision Date: 05/27/23 Decision Time: 17:40
[2023-05-27 17:53] LABS: Partial Thromboplastin Time 25.4 sec (22.0-30.0); Prothrombin Time 10.8 sec (10.0-12.5)
--- NOTE | 2023-05-27 18:04 | XR ---
EXAMINATION TYPE: XR chest 1V portable DATE OF EXAM: 05/27/2023 5:53 PM CLINICAL INDICATION:Female, 58 years old with history of chest pain; COMPARISON: Chest radiographs from 06/29/2017 TECHNIQUE: XR chest 1V portable Frontal view of the chest. FINDINGS: Lungs/Pleura: Basilar fibrotic change There is no evidence of pleural effusion, focal consolidation, or pneumothorax. Pulmonary vascularity: Unremarkable. Heart/mediastinum: Cardiomediastinal silhouette is enlarged bilaterally. And stable. Musculoskeletal: No acute osseous pathology. IMPRESSION: Cardiomegaly with pulmonary basilar fibrotic change.
[2023-05-27 18:13] LABS: ALT 23 U/L (4-34); AST 30 U/L (14-36); African American GFR (CKD) 66 (>60 ml/min/1.73 sqM); Albumin 3.8 g/dL (3.5-5.0); Alkaline Phosphatase 170 U/L (38-126); Anion Gap 10 mmol/L; Blood Urea Nitrogen 11 mg/dL (7-17); Calcium 9.1 mg/dL (8.4-10.2); Carbon Dioxide 23 mmol/L (22-30); Chloride 104 mmol/L (98-107); Glucose 127 mg/dL (74-99); Magnesium 1.6 mg/dL (1.6-2.3); Non-African American GFR(CKD) 57 (>60 ml/min/1.73 sqM); Potassium 3.4 mmol/L (3.5-5.1); Sodium 137 mmol/L (137-145); Total Bilirubin 0.6 mg/dL (0.2-1.3); Total Protein 7.7 g/dL (6.3-8.2)
[2023-05-27 18:22] LABS: NT-Pro-B-Type Natriuretic Pept 8950 pg/mL
[2023-05-27] MEDS ORDERED: BUTALB/APAP/CAFF 50-325-40MG TAB PO PRN (21:06)
[2023-05-27] MEDS ORDERED: APIXABAN 5 MG TAB PO SCH (22:00)
[2023-05-27] MEDS ORDERED: NYSTATIN 100,000 UNIT/GM POWD 15 GM TOPICAL PRN (22:00)
[2023-05-27] MEDS ORDERED: METOCLOPRAMIDE 10 MG TAB PO PRN (22:00)
[2023-05-28] MEDS: DILTIAZEM 125 MG in SODIUM CHLORIDE 0.9% 100 ML IV SCH ×3 (02:10→18:52)
[2023-05-28] MEDS: ACETAMINOPHEN TAB 325 MG TAB PO PRN (02:21)
[2023-05-28] MEDS: LEVOTHYROXINE 88 MCG TAB PO SCH (06:19)
[2023-05-28] MEDS ORDERED: HEPARIN SODIUM 1,000 UN/ML (10ML VL) IV PRN (08:13)
[2023-05-28] MEDS: METOPROLOL TARTRATE 50 MG TAB PO SCH ×2 (08:20→20:23)
[2023-05-28] MEDS ORDERED: DEXTROSE 5% IN WATER 100 ML with AMIODARONE 150 MG IV ONE (08:30)
[2023-05-28] MEDS ORDERED: AMIODARONE 360 MG in DEXTROSE 5% IN WATER 200 ML IV ONE ×2 (08:40)
[2023-05-28 08:42] LABS: Basophils # (A) 0.1 k/uL (0-0.2); Basophils % (A) 1 %; Eosinophils # (A) 0.2 k/uL (0-0.7); Eosinophils % (A) 2 %; HCT 37.2 % (34.0-46.0); HGB 12.2 gm/dL (11.4-16.0); Lymphocytes # (A) 1.6 k/uL (1.0-4.8); Lymphocytes % (A) 14 %; MCH 28.6 pg (25.0-35.0); MCHC 32.8 g/dL (31.0-37.0); MCV 87.1 fL (80.0-100.0); Mean Platelet Volume 10.6; Monocytes # (A) 0.5 k/uL (0-1.0); Monocytes % (A) 4 %; Neutrophils # (A) 9.1 k/uL (1.3-7.7); Neutrophils % (A) 79 %; Platelet Count 174 k/uL (150-450); RBC 4.27 m/uL (3.80-5.40); RDW 14.7 % (11.5-15.5); WBC 11.5 k/uL (3.8-10.6)
[2023-05-28] MEDS: HEPARIN SOD,PORK IN 0.45% NACL 25,000 UNIT in 0.45% NACL 1 250ML.BAG IV SCH (08:49)
[2023-05-28] MEDS ORDERED: ALBUTEROL NEBULIZED 2.5 MG/3 ML INHALATION PRN (09:00)
[2023-05-28] MEDS ORDERED: BUDESONIDE 0.5 MG/2 ML NEBU INHALATION PRN (09:00)
[2023-05-28] MEDS ORDERED: ASPIRIN 325 MG TAB PO SCH (09:00)
[2023-05-28] MEDS ORDERED: atenoloL 50 MG TAB PO SCH (09:00)
[2023-05-28] MEDS ORDERED: PRASTERONE 25 MG PO SCH (09:00)
[2023-05-28] MEDS ORDERED: POTASSIUM CHLORIDE ER 10 MEQ TAB.ER.PRT PO PRN (09:00)
[2023-05-28] MEDS ORDERED: NON FORMULARY DRUG (Acetylcysteine [Nac] 500 MG Capsule) PO SCH (09:00)
[2023-05-28] MEDS ORDERED: FUROSEMIDE 20 MG TAB PO PRN (09:00)
[2023-05-28 09:03] LABS: INR 1.1 (<1.2); Partial Thromboplastin Time 26.1 sec (22.0-30.0); Prothrombin Time 11.7 sec (10.0-12.5)
[2023-05-28] MEDS: ASPIRIN 81 MG PO SCH (09:03)
[2023-05-28] MEDS: buPROPion XL 150 MG TAB.ER.24H PO SCH (09:03)
[2023-05-28] MEDS: PANTOPRAZOLE 40 MG TABLET PO SCH (09:03)
[2023-05-28] MEDS: amLODIPine 5 MG TAB PO SCH (09:03)
[2023-05-28] MEDS: FOLIC ACID-VIT B COMPLEX-VIT C 1 CAP PO SCH (09:03)
[2023-05-28] MEDS: MONTELUKAST 10 MG TAB PO SCH (09:03)
[2023-05-28] MEDS: DULoxetine HCL 30 MG CAPSULE.DR PO SCH ×2 (09:03→20:23)
[2023-05-28] MEDS: lisinopriL 10 MG TAB PO SCH (09:04)
[2023-05-28] MEDS: NON FORMULARY DRUG (Dextroamphetamine/Amphetamine [Adderall] 20 MG Tablet) PO SCH ×2 (09:06→22:10)
--- NOTE | 2023-05-28 10:41 | P.CRDCN ---
History of Present Illness Consult date: 05/28/23 Consult reason: atrial fibrillation (With RVR, chest pain) History of present illness: History of present illness: This is a 58 year old female patient of Dr. Lee with past medical history of sarcoidosis, hypertension, hyperlipidemia, erythema nodosum, atrial fibrillation, mild coronary artery disease on prior cardiac cath 10 years ago. She follows at [facility] for sarcoidosis. We have been asked to evaluate the patient for chest pain and A. fib with RVR. Patient states that she has not been feeling good with shortness of breath although heaviness in her chest and palpitations. Patient presented to the hospital found to be in A. fib with RVR and started on Cardizem drip currently at 15 mg per hour. She has not received her home beta cindy. She is seen today on the cardiac stepdown unit and heart rate is running in the 140s and she still feels she does not feel well. Patient was seen in the office to be established on 05/09/2023 and at that time plan was to obtain event monitor and obtain ec hocardiogram from PCPs office and obtain left heart catheterization report. May consider changing amlodipine and increasing benazepril for lower extremity edema. EKG A. fib at 139 bpm, #2 A. fib 115 bpm Chest x-ray: Cardiomegaly with pulmonary basilar fibrotic changes Troponin negative 3, proBNP 8950, WBC 13.2, hemoglobin 12.6. Potassium 3.4, creatinine 1.07, blood sugar 127, alkaline phosphatase 170 was liver function tests are normal. Home cardiac medications: Amlodipine/benazepril 510 milligrams daily, eliquis 5 mg twice daily, atenolol 50 mild grams twice daily, Lasix 20 mg daily as needed, K-Dur 10 milliequivalents daily as needed, also on levothyroxine 88 g daily. Review Of Systems: At the time of my exam: CONSTITUTIONAL: Denies fever or chills. Generalized fatigue CARDIOVASCULAR: + chest pain, + shortness of breath, + palpitations, no orthopnea, PND or palpitations. RESPIRATORY: Denies cough. GASTROINTESTINAL: Denies abdominal pain, diarrhea, constipation, nausea or vo miting. MUSCULOSKELETAL: Denies myalgias. NEUROLOGIC: Denies numbness, tingling or weakness. ENDOCRINE: Denies fatigue, weight change, polydipsia or polyurina. GENITOURINARY: Denies burning, hematuria or urgency with micturation. HEMATOLOGIC: Denies history of anemia or bleeding. Physical examination: Gen: This is a 58 year old female resting in bed and appears to be somewhat uncomfortable. VS: reviewed HEENT: Head is atraumatic, normocephalic. Pupils equal, round. Sclerae is anicteric. NECK: Supple. No JVD. LUNGS: Clear to auscultation. No wheezes or rhonchi. No intercostal retractions. HEART: Irregular rate and rhythm. No murmur. ABDOMEN: Soft No tenderness. EXTREMITIES: No pedal edema. No calf tenderness. NEUROLOGICAL: Patient is awake, alert and oriented x3. Assessment: Paroxysmal atrial fibrillation and RVR Chest pain Hypertension Hyperlipidemia Pulmonary sarcoidosis Erythema nodosum Plan: Continue patient on Cardizem drip at 15 mg Discontinue atenolol and start patient on metoprolol 50 mg twice daily Obtain TSH free T4 levels Start patient on heparin drip. Patient last took eliquis on Friday morning Obtain 2-D echocardiogram and Doppler study to assess cardiac structure and function Patient to be nothing by mouth after midnight for possible cardiac catheteriz ation tomorrow Further recommendations to follow based upon clinical course Thank you kindly for this consultation. Nurse practitioner note has been reviewed, I agree with documented findings and plan of care. Patient was seen and examined. Past Medical History Past Medical History: Atrial Fibrillation, Asthma, Deep Vein Thrombosis (DVT), Eye Disorder, Fibromyalgia, GERD/Reflux, Hypertension, Pneumonia, Rheumatoid Arthritis (RA), Skin Disorder, Sleep Apnea/CPAP/BIPAP, Thyroid Disorder Additional Past Medical History / Comment(s): gout, sarcoidosis, glaucoma, NO CURRENT MEDS FOR GLAUCOMA, migraines, HX arrhythmia, no cpap used, degenerative disk disease, spinal stenosis, constipation, hx ulcer, hiatal hernia, dry spots and skin irritation- sores on legs erythemia nodosum History of Any Multi-Drug Resistant Organisms: None Reported Past Surgical History: Cholecystectomy, Heart Catheterization Additional Past Surgical History / Comment(s): lung biopsy, LEG AND ABDOMEN BIOPSY, rt cataract Past Anesthesia/Blood Transfusion Reactions: No Reported Reaction Past Psychological History: Anxiety, Depression Additional Psychological History / Comment(s): . Smoking Status: Current every day smoker Past Alcohol Use History: Rare Additional Past Alcohol Use History / Comment(s): started smoking age 15, smokes 1/2ppd Past Drug Use History: Marijuana Additional Drug Use History / Comment(s): Pt has medical marijuana, BOTH INHALED AND EDIBLE OR OIL. - Past Family History Mother Family Medical History: COPD, GERD/Reflux, Hypertension, Osteoarthritis (OA) Additional Family Medical History / Comment(s): Mother is 77 yrs old. Father Family Medical History: Hypertension Additional Family Medical History / Comment(s): Father is an amputee of the R leg. Father is 73 yrs old. Brother(s) Family Medical History: Cancer Additional Family Medical History / Comment(s): leukemia Medications and Allergies Home Medications Medication Instructions Recorded Confirmed Type Montelukast [Singulair] 10 mg PO DAILY 01/29/14 05/27/23 History Pantoprazole Sodium [Protonix] 40 mg PO DAILY 01/29/14 05/27/23 History Butalb/Acetaminophen/Caffeine 1 tab PO Q8H PRN 02/15/14 05/27/23 History [Fioricet 50-325-40 mg Tablet] Albuterol Nebulized [Ventolin 2.5 mg INHALATION DIRECTED PRN 08/09/15 05/27/23 History Nebulized] Furosemide [Lasix] 20 mg PO DAILY PRN 08/09/15 05/27/23 History DULoxetine HCL [Cymbalta] 30 mg PO BID 12/27/16 05/27/23 History buPROPion HCL [Wellbutrin XL] 150 mg PO DAILY 12/27/16 05/27/23 History atenoloL [Tenormin] 50 mg PO BID 06/29/17 05/27/23 History Acetylcysteine [Nac] 500 mg PO DAILY 05/27/23 05/27/23 History Amitriptyline HCl [Elavil] 25 mg PO HS 05/27/23 05/27/23 History Apixaban [Eliquis] 5 mg PO BID 05/27/23 05/27/23 History Budesonide [Pulmicort] 0.5 mg INHALATION DIRECTED PRN 05/27/23 05/27/23 History Dextroamphetamine/Amphetamine 20 mg PO BID 05/27/23 05/27/23 History [Adderall] Ergocalciferol [Vitamin D2 (1250 1,250 mcg PO Q7D 05/27/23 05/27/23 History Mcg = 48029 Iu)] Levothyroxine Sodium [Synthroid] 88 mcg PO DAILY 05/27/23 05/27/23 History Metoclopramide [Reglan] 10 mg PO TID PRN 05/27/23 05/27/23 History Nystatin 100,000 Unit/gm Powd 1 applic TOPICAL BID PRN 05/27/23 05/27/23 History [Mycostatin Powder] Potassium Chloride ER [K-Dur 10] 10 meq PO DAILY PRN 05/27/23 05/27/23 History Prasterone (Dhea) [Dhea 25] 25 mg PO DAILY 05/27/23 05/27/23 History Super B-Complex 1 tab PO DAILY 05/27/23 05/27/23 History amLODIPine BESYLATE/BENAZEPRIL 1 cap PO DAILY 05/27/23 05/27/23 History [Lotrel 5-10 mg Capsule] Allergies Allergy/AdvReac Type Severity Reaction Status Date / Time adhesive Allergy Rash/Hives Verified 05/27/23 16:20 Penicillins Allergy Dyspnea, Verified 05/27/23 16:20 itchy, hives Sulfa (Sulfonamide Allergy Confusion, Verified 05/27/23 16:20 Antibiotics) high fever Physical Exam Vitals: Vital Signs Temp Pulse Pulse Resp BP BP Pulse Ox 05/28/23 03:16 97.4 F L 133 H 20 156/82 94 L 05/28/23 02:49 98.1 F 116 H 20 132/77 95 05/28/23 02:27 98.1 F 110 H 20 130/65 95 05/28/23 00:00 98.1 F 20 132/74 95 05/27/23 21:06 98.1 F 20 134/61 05/27/23 19:00 109 H 20 118/72 95 05/27/23 17:11 113 H 20 145/105 96 05/27/23 16:16 98 F 92 18 131/81 98 Intake and Output 05/27/23 05/28/23 05/28/23 22:59 06:59 14:59 Intake Total 8.667 Balance 8.667 Intake: Intake, IV Titration 8.667 Amount Diltiazem 125 mg In 8.667 Sodium Chloride 0.9% 100 ml @ Per Protocol IV .Q0M [facility] Rx#:[id number] Other: # Voids 2 Weight 95.254 kg Results 05/28/23 08:31 05/27/23 17:13 Cardiac Enzymes 05/27/23 05/27/23 05/27/23 Range/Units 17:13 17:13 20:31 AST 30 (14-36) U/L Troponin I <0.012 <0.012 (0.000-0.034) ng/mL 05/27/23 Range/Units 23:03 AST (14-36) U/L Troponin I <0.012 (0.000-0.034) ng/mL Coagulation 05/27/23 Range/Units 17:13 PT 10.8 (10.0-12.5) sec APTT 25.4 (22.0-30.0) sec CBC 05/27/23 Range/Units 17:13 WBC 13.2 H (3.8-10.6) k/uL RBC 4.47 (3.80-5.40) m/uL Hgb 12.6 (11.4-16.0) gm/dL Hct 39.1 (34.0-46.0) % Plt Count 232 (150-450) k/uL Comprehensive Metabolic Panel 05/27/23 Range/Units 17:13 Sodium 137 (137-145) mmol/L Potassium 3.4 L (3.5-5.1) mmol/L Chloride 104 (98-107) mmol/L Carbon Dioxide 23 (22-30) mmol/L BUN 11 (7-17) mg/dL Creatinine 1.07 H (0.52-1.04) mg/dL Glucose 127 H (74-99) mg/dL Calcium 9.1 (8.4-10.2) mg/dL AST 30 (14-36) U/L ALT 23 (4-34) U/L Alkaline Phosphatase 170 H (38-126) U/L Total Protein 7.7 (6.3-8.2) g/dL Albumin 3.8 (3.5-5.0) g/dL Current Medications Generic Name Dose Route Start Last Admin Trade Name Freq PRN Reason Stop Dose Admin Acetaminophen 650 mg 05/28/23 01:56 05/28/23 02:21 Acetaminophen Tab 325 Mg Tab PO 650 mg Q4HR PRN Administration Headache Acetaminophen/Butalbital/Caffeine 1 each 05/27/23 21:06 Butalb/Apap/Caff 50-325-40mg Tab PO Q8H PRN Pain Albuterol Sulfate 2.5 mg 05/28/23 09:00 Albuterol Nebulized 2.5 Mg/3 Ml INHALATION DIRECTED PRN Shortness Of Breath Amitriptyline HCl 25 mg 05/28/23 21:00 Amitriptyline Hcl 25 Mg Tab PO HS [facility] Amlodipine Besylate 5 mg 05/28/23 09:00 Amlodipine 5 Mg Tab PO DAILY [facility] Apixaban 5 mg 05/27/23 22:00 05/27/23 21:21 Apixaban 5 Mg Tab PO 5 mg BID [facility] Administration Protocol Aspirin 325 mg 05/28/23 09:00 Aspirin 325 Mg Tab PO DAILY [facility] Atenolol 50 mg 05/28/23 09:00 Atenolol 50 Mg Tab PO BID [facility] Budesonide 0.5 mg 05/28/23 09:00 Budesonide 0.5 Mg/2 Ml Nebu INHALATION DIRECTED PRN Shortness Of Breath Bupropion HCl 150 mg 05/28/23 09:00 Bupropion Xl 150 Mg Tab.Er.24h PO DAILY [facility] Duloxetine HCl 30 mg 05/28/23 09:00 Duloxetine Hcl 30 Mg Capsule.Dr PO BID [facility] Ergocalciferol 1,250 mcg 05/30/23 09:00 Ergocalciferol 1,250 Mcg (50,000 Iu) Capsule PO Q7D [facility] Furosemide 20 mg 05/28/23 09:00 Furosemide 20 Mg Tab PO DAILY PRN Edema Diltiazem HCl 125 mg/ Sodium 125 mls @ 0 mls/hr 05/28/23 02:00 05/28/23 03:21 Chloride IV 15 ml/hr .Q0M [facility] 15 mls/hr Titration Protocol Per Protocol Levothyroxine Sodium 88 mcg 05/28/23 06:30 05/28/23 06:19 Levothyroxine 88 Mcg Tab PO 88 mcg DAILY@0630 [facility] Administration Lisinopril 10 mg 05/28/23 09:00 Lisinopril 10 Mg Tab PO DAILY [facility] Metoclopramide HCl 10 mg 05/27/23 22:00 Metoclopramide 10 Mg Tab PO TID PRN Nausea And Vomiting Montelukast Sodium 10 mg 05/28/23 09:00 Montelukast 10 Mg Tab PO DAILY [facility] Multivit/Ca Carb/B Cmplx/FA/Prenat 1 each 05/28/23 09:00 Folic Acid-Vit B Complex-Vit C 1 Cap PO DAILY [facility] Non-Formulary Medication 20 mg 05/28/23 09:00 Dextroamphetamine/Amphetamine [Adderall] PO BID [facility] Nystatin 1 applic 05/27/23 22:00 Nystatin 100,000 Unit/Gm Powd 15 Gm TOPICAL BID PRN Skin Irritation Protocol Pantoprazole Sodium 40 mg 05/28/23 09:00 Pantoprazole 40 Mg Tablet PO DAILY [facility] Potassium Chloride 10 meq 05/28/23 09:00 Potassium Chloride Er 10 Meq Tab.Er.Prt PO DAILY PRN w/lasix Intake and Output 05/27/23 05/28/23 05/28/23 22:59 06:59 14:59 Intake Total 8.667 Balance 8.667 Intake: Intake, IV Titration 8.667 Amount Diltiazem 125 mg In 8.667 Sodium Chloride 0.9% 100 ml @ Per Protocol IV .Q0M [facility] Rx#:[id number] Other: # Voids 2 Weight 95.254 kg 05/27/23 17:13 05/27/23 17:13
[2023-05-28 11:30] LABS: Chol/HDL Ratio 2.87 Ratio; LDL Cholesterol,Calculated 74.8 mg/dL (0.0-131.0); VLDL Calculation 14.52 mg/dL (5.00-40.00)
[2023-05-28] MEDS ORDERED: ALPRAZolam 0.25 MG TAB PO PRN (12:48)
[2023-05-28] MEDS ORDERED: NITROGLYCERIN SL TABS 0.4 MG TAB SUBLINGUAL PRN (12:48)
--- NOTE | 2023-05-28 12:57 | CA ---
Transthoracic Echo Report Name: Pili Harley Age: 58 Gender: F : 1965 Exam Date: 05/28/2023 07:45 Exam Location: [place] [facility] Ht (in): 67 Wt (lb): 210 Ordering Physician: Bryn Payne DO Attending/Referring Phys: [id number], Elmer Barrel Loader Angelica Burciaga RUST Procedure CPT: Indications: CP Cardiac Hx: Technical Quality: Technically difficult study Contrast 1: Definity Total Dose (mL): 5 Contrast 2: Total Dose (mL): MEASUREMENTS (Male / Female) Normal Values 2D ECHO LV Diastolic Diameter PLAX 4.8 cm 4.2 - 5.9 / 3.9 - 5.3 cm LV Systolic Diameter PLAX 3.8 cm IVS Diastolic Thickness 1.5 cm 0.6 - 1.0 / 0.6 - 0.9 cm LVPW Diastolic Thickness 1.6 cm 0.6 - 1.0 / 0.6 - 0.9 cm LV Relative Wall Thickness 0.6 Ascending Aorta Diameter 3.2 cm DOPPLER AV Peak Velocity 140.0 cm/s AV Peak Gradient 7.8 mmHg AV Mean Velocity 104.8 cm/s AV Mean Gradient 4.7 mmHg AV Velocity Time Integral 21.0 cm LVOT Peak Velocity 113.8 cm/s LVOT Peak Gradient 5.2 mmHg LVOT Velocity Time Integral 19.2 cm Mitral E Point Velocity 154.5 cm/s MV Deceleration Time 170.1 ms LV E' Lateral Velocity 11.8 cm/s Mitral E to LV E' Lateral Ratio 13.1 LV E' Septal Velocity 8.9 cm/s Mitral E to LV E' Septal Ratio 17.3 Right Atrial Pressure 8.0 mmHg FINDINGS Left Ventricle Moderately increased left ventricular wall thickness. Left ventricular cavity size normal. Left ventricular ejection fraction is estimated at 55-60 %. Normal left ventricular wall motion. Right Ventricle Right ventricle not well visualized. Right Atrium Right atrium not well visualized. Left Atrium Mild left atrial dilatation. Mitral Valve Mitral valve not well visualized. Trace mitral regurgitation. Aortic Valve Aortic valve not well visualized. Tricuspid Valve Tricuspid valve not well visualized. Pulmonic Valve Pulmonic valve not well visualized. Pericardium No pericardial effusion. Aorta Normal size aortic root and proximal ascending aorta. CONCLUSIONS Technically difficult study. Definity ECHO contrast used for improved visualization of the endocardial borders (inadequate visualization of two or more contiguous segments). Normal left ventricular size and systolic function Very limited Doppler study Previewed by: Dr. Milagros Valderrama MD (Electronically Signed) Final Date: 28 May 2023 12:56
[2023-05-28] MEDS: AMIODARONE 450 MG in DEXTROSE 5% IN WATER 250 ML IV SCH ×2 (14:39)
[2023-05-28] MEDS ORDERED: Potassium Replacement Protocol 1 EACH MISC MISCELLANE PRN (16:36)
[2023-05-28] MEDS ORDERED: Magnesium Replacement Protocol 1 EACH MISC MISCELLANE PRN (16:37)
--- NOTE | 2023-05-28 16:43 | P.HPIM ---
History of Present Illness H&P Date: 05/28/23 This is a 58-year-old female with past medical history significant for recently diagnosed atrial fibrillation, CAD, asthma, DVT, fibromyalgia, hypertension, rheumatoid arthritis, sarcoidosis, ongoing nicotine dependence, erythema nodosum, presented to the ER with shortness of breath, mild mid sternal chest heaviness, diaphoresis, nausea and vomiting and multiple other medical issues. On admission noted to be in atrial flutter with RVR with Cardizem drip initiated. Anticoagulated on heparin drip. Continues to feel chest heaviness and shortness of breath. Amiodarone drip recently initiated. EKG reported atrial fibrillation with RVR, troponin negative 3 , proBNP 8950. chest x-ray reported cardiomegaly with pulmonary basilar fibrotic change. Afebrile WBC 11.5, hemoglobin 12.2, platelets 174, INR 1.1. Potassium 3.4, repeat level ordered. BUN 11, creatinine 1.07, glucose 127, magnesium 1.6, repeat level ordered. Alk phos 170. Review of Systems ROS Statement: Those systems with pertinent positive or pertinent negative responses have been documented in the HPI. ROS Other: All systems not noted in ROS Statement are negative. Past Medical History Past Medical History: Atrial Fibrillation, Asthma, Deep Vein Thrombosis (DVT), Eye Disorder, Fibromyalgia, GERD/Reflux, Hypertension, Pneumonia, Rheumatoid Arthritis (RA), Skin Disorder, Sleep Apnea/CPAP/BIPAP, Thyroid Disorder Additional Past Medical History / Comment(s): gout, sarcoidosis, glaucoma, NO CURRENT MEDS FOR GLAUCOMA, migraines, HX arrhythmia, no cpap used, degenerative disk disease, spinal stenosis, constipation, hx ulcer, hiatal hernia, dry spots and skin irritation- sores on legs erythemia nodosum History of Any Multi-Drug Resistant Organisms: None Reported Past Surgical History: Cholecystectomy, Heart Catheterization Additional Past Surgical History / Comment(s): lung biopsy, LEG AND ABDOMEN BIOPSY, rt cataract Past Anesthesia/Blood Transfusion Reactions: No Reported Reaction Past Psychological History: Anxiety, Depression Additional Psychological History / Comment(s): . Smoking Status: Current every day smoker Past Alcohol Use History: Rare Additional Past Alcohol Use History / Comment(s): started smoking age 15, smokes 1/2ppd Past Drug Use History: Marijuana Additional Drug Use History / Comment(s): Pt has medical marijuana, BOTH INHALED AND EDIBLE OR OIL. - Past Family History Mother Family Medical History: COPD, GERD/Reflux, Hypertension, Osteoarthritis (OA) Additional Family Medical History / Comment(s): Mother is 77 yrs old. Father Family Medical History: Hypertension Additional Family Medical History / Comment(s): Father is an amputee of the R leg. Father is 73 yrs old. Brother(s) Family Medical History: Cancer Additional Family Medical History / Comment(s): leukemia Medications and Allergies Home Medications Medication Instructions Recorded Confirmed Type Montelukast [Singulair] 10 mg PO DAILY 01/29/14 05/27/23 History Pantoprazole Sodium [Protonix] 40 mg PO DAILY 01/29/14 05/27/23 History Butalb/Acetaminophen/Caffeine 1 tab PO Q8H PRN 02/15/14 05/27/23 History [Fioricet 50-325-40 mg Tablet] Albuterol Nebulized [Ventolin 2.5 mg INHALATION RT-QID PRN 08/09/15 05/28/23 History Nebulized] Furosemide [Lasix] 20 mg PO DAILY PRN 08/09/15 05/27/23 History DULoxetine HCL [Cymbalta] 30 mg PO BID 12/27/16 05/27/23 History buPROPion HCL [Wellbutrin XL] 150 mg PO DAILY 12/27/16 05/27/23 History atenoloL [Tenormin] 50 mg PO BID 06/29/17 05/27/23 History Acetylcysteine [Nac] 500 mg PO DAILY 05/27/23 05/27/23 History Amitriptyline HCl [Elavil] 25 mg PO HS 05/27/23 05/27/23 History Apixaban [Eliquis] 5 mg PO BID 05/27/23 05/27/23 History Budesonide [Pulmicort] 0.5 mg INHALATION DIRECTED PRN 05/27/23 05/27/23 History Dextroamphetamine/Amphetamine 20 mg PO BID 05/27/23 05/27/23 History [Adderall] Ergocalciferol [Vitamin D2 (1250 1,250 mcg PO Q7D 05/27/23 05/27/23 History Mcg = 29673 Iu)] Levothyroxine Sodium [Synthroid] 88 mcg PO DAILY 05/27/23 05/27/23 History Metoclopramide [Reglan] 10 mg PO TID PRN 05/27/23 05/27/23 History Nystatin 100,000 Unit/gm Powd 1 applic TOPICAL BID PRN 05/27/23 05/27/23 History [Mycostatin Powder] Potassium Chloride ER [K-Dur 10] 10 meq PO DAILY PRN 05/27/23 05/27/23 History Prasterone (Dhea) [Dhea 25] 25 mg PO DAILY 05/27/23 05/27/23 History Super B-Complex 1 tab PO DAILY 05/27/23 05/27/23 History amLODIPine BESYLATE/BENAZEPRIL 1 cap PO DAILY 05/27/23 05/27/23 History [Lotrel 5-10 mg Capsule] Allergies Allergy/AdvReac Type Severity Reaction Status Date / Time adhesive Allergy Rash/Hives Verified 05/27/23 16:20 Penicillins Allergy Dyspnea, Verified 05/27/23 16:20 itchy, hives Sulfa (Sulfonamide Allergy Confusion, Verified 05/27/23 16:20 Antibiotics) high fever Physical Exam Vitals: Vital Signs Temp Pulse Pulse Resp BP BP Pulse Ox 05/28/23 12:00 98.0 F 104 H 18 137/86 93 L 05/28/23 08:00 98.5 F 108 H 20 143/101 92 L 05/28/23 03:16 97.4 F L 133 H 20 156/82 94 L 05/28/23 02:49 98.1 F 116 H 20 132/77 95 05/28/23 02:27 98.1 F 110 H 20 130/65 95 05/28/23 00:00 98.1 F 20 132/74 95 05/27/23 21:06 98.1 F 20 134/61 05/27/23 19:00 109 H 20 118/72 95 05/27/23 17:11 113 H 20 145/105 96 Intake and Output 05/28/23 05/28/23 05/28/23 06:59 14:59 22:59 Intake Total 8.667 236.333 74.015 Balance 8.667 236.333 74.015 Intake: Intake, IV Titration 8.667 116.333 74.015 Amount Diltiazem 125 mg In 8.667 116.333 Sodium Chloride 0.9% 100 ml @ Per Protocol IV .Q0M [facility] Rx#:[id number] Heparin Sod,Pork in 0.45% 74.015 NaCl 25,000 unit In 0.45 % NaCl 1 250ml.bag @ 10.5 UNITS/KG/HR 10.002 mls/ hr IV .Q24H [facility] Rx#: [id number] Oral 120 Other: # Voids 2 1 GENERAL APPEARANCE: Alert & oriented 3, sitting up in bed, no acute distress. VITAL SIGNS: [As above]. HEENT: Normocephalic,atraumatic. Pupils are equal and reactive. NECK: Supple,no JVD, without lymphadenopathy. Traches midline. HEART: S1, S2 regular. Irregular, tachycardic. No murmur. LUNGS: Unlabored, equal air entry , clear to auscultation. ABDOMEN: Obese Soft, nontender, nondistended. No guarding, no rigidity,+BS. No palpable organomegaly or masses. EXTREMITIES: No edema, no clubbing, no calf tenderness. SKIN: Warm and dry, no rashes noted. NEUROLOGICAL: No focal deficits. Strength and sensation are grossly intact. Results CBC & Chem 7: 05/28/23 08:31 05/27/23 17:13 Labs: Abnormal Lab Results - Last 24 Hours (Table) 05/27/23 05/27/23 05/28/23 Range/Units 17:13 17:13 08:31 WBC 13.2 H 11.5 H (3.8-10.6) k/uL Neutrophils # 9.8 H 9.1 H (1.3-7.7) k/uL APTT (22.0-30.0) sec Potassium 3.4 L (3.5-5.1) mmol/L Creatinine 1.07 H (0.52-1.04) mg/dL Glucose 127 H (74-99) mg/dL Alkaline Phosphatase 170 H (38-126) U/L 05/28/23 Range/Units 14:51 WBC (3.8-10.6) k/uL Neutrophils # (1.3-7.7) k/uL APTT 31.6 H (22.0-30.0) sec Potassium (3.5-5.1) mmol/L Creatinine (0.52-1.04) mg/dL Glucose (74-99) mg/dL Alkaline Phosphatase (38-126) U/L Assessment and Plan Assessment: Chest pain Paroxysmal atrial fibrillation and RVR. Recently diagnosed approximately 2 weeks ago with atrial fibrillation in clinic with PCP, started on Eliquis. Hypertension Hyperlipidemia Pulmonary sarcoidosis Erythema nodosum Morbid obesity, BMI 33 Plan: Continue on current medication regime ,monitoring and symptomatic treatment. Potassium and magnesium level added onto labs, pending. Electrolyte Replacement protocols ordered. Close monitoring of renal function and electro lites with repeat labs ordered for a.m. Antiarrhythmics as per cardiology, currently on Cardizem and heparin drips. Echo pending. Cardiac catheterization tomorrow. The impression and plan of care has been dictated as directed. : I performed a history and examination of this patient, discussed the same with the dictator. I agree with the dictator's note ,documented as a scribe. Any additional findings or plans will be noted.
[2023-05-28 17:05] LABS: African American GFR (CKD) 89 (>60 ml/min/1.73 sqM); Anion Gap 13 mmol/L; Blood Urea Nitrogen 10 mg/dL (7-17); Calcium 8.9 mg/dL (8.4-10.2); Carbon Dioxide 19 mmol/L (22-30); Chloride 105 mmol/L (98-107); Glucose 132 mg/dL (74-99); Magnesium 1.5 mg/dL (1.6-2.3); Non-African American GFR(CKD) 77 (>60 ml/min/1.73 sqM); Potassium 3.5 mmol/L (3.5-5.1); Sodium 137 mmol/L (137-145)
[2023-05-28] MEDS: MAGNESIUM SULFATE-D5W PMX 1 GM in DEXTROSE/WATER 1 100ML.BAG IVPB SCH ×2 (17:24→18:29)
[2023-05-28] MEDS: POTASSIUM CHLORIDE ER 20 MEQ TAB.ER PO SCH (17:24)
[2023-05-28] MEDS: AMITRIPTYLINE HCL 25 MG TAB PO SCH (20:23)
[2023-05-28] MEDS: ALPRAZolam 0.5 MG TAB PO PRN (20:25)
[2023-05-29] MEDS: HEPARIN SOD,PORK IN 0.45% NACL 25,000 UNIT in 0.45% NACL 1 250ML.BAG IV SCH (00:33)
[2023-05-29] MEDS: DILTIAZEM 125 MG in SODIUM CHLORIDE 0.9% 100 ML IV SCH ×2 (00:49→01:05)
[2023-05-29] MEDS: AMIODARONE 450 MG in DEXTROSE 5% IN WATER 250 ML IV SCH ×2 (01:06)
[2023-05-29] MEDS: LEVOTHYROXINE 88 MCG TAB PO SCH (05:32)
[2023-05-29] MEDS ORDERED: ASPIRIN 325 MG TAB PO ONE (06:00)
[2023-05-29] MEDS ORDERED: ATORVASTATIN 80 MG TAB PO ONE (06:00)
[2023-05-29 06:48] LABS: Glucose,Whole Blood 146 mg/dL (70-110)
[2023-05-29] MEDS ORDERED: HEPARIN SODIUM,PORCINE 10,000 UNIT in SODIUM CHLORIDE 0.9% 1,000 ML IRRIGATION PRN (07:00)
[2023-05-29] MEDS ORDERED: HEPARIN SODIUM,PORCINE (1 ML) 2,500 UNIT in SODIUM CHLORIDE 0.9% 250 ML IRRIGATION PRN (07:00)
[2023-05-29 07:27] LABS: Basophils # (A) 0.1 k/uL (0-0.2); Basophils % (A) 1 %; Eosinophils # (A) 0.2 k/uL (0-0.7); Eosinophils % (A) 2 %; HCT 39.1 % (34.0-46.0); HGB 12.8 gm/dL (11.4-16.0); Lymphocytes # (A) 2.6 k/uL (1.0-4.8); Lymphocytes % (A) 20 %; MCHC 32.8 g/dL (31.0-37.0); MCV 88.3 fL (80.0-100.0); Mean Platelet Volume 10.3; Monocytes # (A) 0.5 k/uL (0-1.0); Monocytes % (A) 4 %; Neutrophils % (A) 72 %; Platelet Count 188 k/uL (150-450); RBC 4.43 m/uL (3.80-5.40); RDW 14.6 % (11.5-15.5); WBC 12.5 k/uL (3.8-10.6)
[2023-05-29 07:38] LABS: Prothrombin Time 11.3 sec (10.0-12.5)
[2023-05-29 07:55] LABS: African American GFR (CKD) 70 (>60 ml/min/1.73 sqM); Anion Gap 13 mmol/L; Blood Urea Nitrogen 9 mg/dL (7-17); Calcium 8.7 mg/dL (8.4-10.2); Carbon Dioxide 19 mmol/L (22-30); Chloride 103 mmol/L (98-107); Glucose 131 mg/dL (74-99); Magnesium 1.9 mg/dL (1.6-2.3); Non-African American GFR(CKD) 61 (>60 ml/min/1.73 sqM); Potassium 3.5 mmol/L (3.5-5.1); Sodium 135 mmol/L (137-145)
[2023-05-29] MEDS ORDERED: POTASSIUM CHLORIDE ER 20 MEQ TAB.ER PO STA (08:14)
[2023-05-29] MEDS: NON FORMULARY DRUG (Dextroamphetamine/Amphetamine [Adderall] 20 MG Tablet) PO SCH ×2 (08:15→20:20)
[2023-05-29] MEDS: MONTELUKAST 10 MG TAB PO SCH (08:35)
[2023-05-29] MEDS: METOPROLOL TARTRATE 50 MG TAB PO SCH ×2 (08:35→20:15)
[2023-05-29] MEDS: PANTOPRAZOLE 40 MG TABLET PO SCH (08:35)
[2023-05-29] MEDS: DULoxetine HCL 30 MG CAPSULE.DR PO SCH ×2 (08:35→20:14)
[2023-05-29] MEDS: buPROPion XL 150 MG TAB.ER.24H PO SCH (08:36)
[2023-05-29] MEDS: amLODIPine 5 MG TAB PO SCH (08:36)
[2023-05-29] MEDS: FOLIC ACID-VIT B COMPLEX-VIT C 1 CAP PO SCH ×2 (08:36→09:56)
[2023-05-29] MEDS: lisinopriL 10 MG TAB PO SCH (08:36)
[2023-05-29] MEDS: AMIODARONE 200 MG TAB PO SCH ×2 (08:36→20:15)
[2023-05-29] MEDS: ASPIRIN 81 MG PO SCH (09:56)
--- NOTE | 2023-05-29 12:37 | PN ---
PROGRESS NOTE SUBJECTIVE: Mrs. Pili Harley is comfortable resting. She is going for a cardiac cath later on today. She remains in atrial fib, rate is much better controlled. I am recommending we discontinue IV Cardizem, place her on 75 mg b.i.d. of metoprolol tartrate. Switch her from IV to p.o. amiodarone. Increase activity and hopefully she will have cardiac cath later on today by Dr. Lee. She had an abnormal stress test in the past and a new-onset atrial fibrillation. OBJECTIVE: VITALS: Stable. HEART: S1, S2 heard normally, irregular rhythm noted, short systolic murmur noted. LUNGS: Revealed decent air entry. ABDOMEN: Unchanged. EXTREMITIES: Lower extremities exam unchanged. MMODL / IJN: [id number] /
[2023-05-29] MEDS ORDERED: IV FLUID CONTINUATION 1,000 ML IV ONE (13:40)
[2023-05-29] MEDS ORDERED: MIDAZOLAM 2 MG/2 ML VIAL IVP ONE (13:45)
[2023-05-29] MEDS ORDERED: fentaNYL (PF) 50 MCG/ML 2 ML AMP IVP ONE (13:45)
[2023-05-29] MEDS ORDERED: LIDOCAINE 1% INJ 10MG/ML (20 ML MDV) SQ ONE (13:47)
[2023-05-29] MEDS ORDERED: VERAPAMIL SYRINGE (5 MG/10 ML) INTRAARTER ONE (13:48)
[2023-05-29] MEDS ORDERED: HEPARIN SODIUM 1,000 UN/ML (10ML VL) IV ONE (13:51)
[2023-05-29] MEDS ORDERED: IOPAMIDOL-370 100ML BTL INJ ONE (13:59)
[2023-05-29] MEDS: AMITRIPTYLINE HCL 25 MG TAB PO SCH (20:14)
--- NOTE | 2023-05-29 22:11 | P.PN ---
Subjective Progress Note Date: 05/29/23 She feels her chest pain is improving today and denies shortness of breath at rest. Pt for coronary catheterization today. No nausea, vomiting, abd pain. Objective - Vital Signs Vital signs: Vital Signs Temp 98.1 F 05/29/23 16:16 Pulse 107 H 05/29/23 16:16 Resp 17 05/29/23 16:16 BP 125/78 05/29/23 16:16 Pulse Ox 94 L 05/29/23 16:16 FiO2 Intake & Output 05/29/23 05/29/23 05/30/23 06:59 18:59 06:59 Intake Total 410.328 296.170 0 Output Total 0 Balance 410.328 296.170 0 Intake: IV 100 Intake, IV Titration 410.328 196.170 0 Amount Amiodarone 450 mg In 174.17 Dextrose 5% in Water 250 ml @ 0.5 MG/MIN 16.667 mls/hr IV .Q15H [facility] Rx#: [id number] Diltiazem 125 mg In 129 Sodium Chloride 0.9% 100 ml @ Per Protocol IV .Q0M [facility] Rx#:[id number] Heparin Sod,Pork in 0.45% 107.158 196.170 0 NaCl 25,000 unit In 0.45 % NaCl 1 250ml.bag @ 10.5 UNITS/KG/HR 10.002 mls/ hr IV .Q24H [facility] Rx#: [id number] Output: Gastric Drainage 0 Urine 0 Stool 0 Urine/Stool Mix 0 Emesis 0 Oral Regurgitation 0 Other 0 Other: # Voids 2 0 # Bowel Movements 0 - Exam Gen: well developed, well nourished NAD CV: RRR, no murmur Lungs: CTAB Abd: soft, nontender - Labs CBC & Chem 7: 05/29/23 06:23 05/29/23 06:23 Labs: Abnormal Lab Results - Last 24 Hours (Table) 05/28/23 05/29/23 05/29/23 Range/Units 23:03 06:23 06:23 WBC 12.5 H (3.8-10.6) k/uL Neutrophils # 9.0 H (1.3-7.7) k/uL APTT 38.6 H (22.0-30.0) sec Sodium 135 L (137-145) mmol/L Carbon Dioxide 19 L (22-30) mmol/L Glucose 131 H (74-99) mg/dL POC Glucose (mg/dL) (70-110) mg/dL 05/29/23 05/29/23 Range/Units 06:23 06:47 WBC (3.8-10.6) k/uL Neutrophils # (1.3-7.7) k/uL APTT 40.5 H (22.0-30.0) sec Sodium (137-145) mmol/L Carbon Dioxide (22-30) mmol/L Glucose (74-99) mg/dL POC Glucose (mg/dL) 146 H (70-110) mg/dL Assessment and Plan Plan: Continue with current medical management. Amiodarone per Cardiology
[2023-05-30] MEDS ORDERED: DILTIAZEM 125 MG in SODIUM CHLORIDE 0.9% 100 ML IV SCH ×2
[2023-05-30] MEDS: HEPARIN SOD,PORK IN 0.45% NACL 25,000 UNIT in 0.45% NACL 1 250ML.BAG IV SCH (03:09)
[2023-05-30] MEDS: LEVOTHYROXINE 88 MCG TAB PO SCH (05:28)
[2023-05-30] MEDS: NON FORMULARY DRUG (Dextroamphetamine/Amphetamine [Adderall] 20 MG Tablet) PO SCH ×2 (08:10→21:10)
[2023-05-30] MEDS: FOLIC ACID-VIT B COMPLEX-VIT C 1 CAP PO SCH (08:24)
[2023-05-30] MEDS: ASPIRIN 81 MG PO SCH (08:24)
[2023-05-30] MEDS: METOPROLOL TARTRATE 50 MG TAB PO SCH ×2 (08:24→21:11)
[2023-05-30] MEDS: DULoxetine HCL 30 MG CAPSULE.DR PO SCH ×2 (08:24→21:11)
[2023-05-30] MEDS: buPROPion XL 150 MG TAB.ER.24H PO SCH (08:24)
[2023-05-30] MEDS: PANTOPRAZOLE 40 MG TABLET PO SCH (08:24)
[2023-05-30] MEDS: APIXABAN 5 MG TAB PO SCH ×2 (08:24→21:10)
[2023-05-30] MEDS: amLODIPine 5 MG TAB PO SCH (08:24)
[2023-05-30] MEDS: lisinopriL 10 MG TAB PO SCH (08:24)
[2023-05-30] MEDS: AMIODARONE 200 MG TAB PO SCH ×2 (08:24→21:11)
[2023-05-30] MEDS: MONTELUKAST 10 MG TAB PO SCH (08:24)
[2023-05-30] MEDS ORDERED: ERGOCALCIFEROL 1,250 MCG (50,000 IU) CAPSULE PO SCH (09:00)
[2023-05-30 10:13] LABS: African American GFR (CKD) 64 (>60 ml/min/1.73 sqM); Blood Urea Nitrogen 12 mg/dL (7-17); Carbon Dioxide 19 mmol/L (22-30); Chloride 106 mmol/L (98-107); Glucose 121 mg/dL (74-99); Non-African American GFR(CKD) 56 (>60 ml/min/1.73 sqM)
[2023-05-30 10:23] LABS: Anion Gap 9 mmol/L; Calcium 8.6 mg/dL (8.4-10.2); Potassium 3.8 mmol/L (3.5-5.1); Sodium 134 mmol/L (137-145)
[2023-05-30] MEDS ORDERED: METOPROLOL TARTRATE 5 MG/5 ML VIAL IVP STA (11:06)
[2023-05-30] MEDS: VERAPAMIL 40 MG TAB PO SCH ×2 (11:34→21:10)
--- NOTE | 2023-05-30 12:56 | P.CARDCATH ---
Date of Procedure: 05/29/23 Description of Procedure: PROCEDURES PERFORMED: Left heart catheterization, bilateral coronary angiography, ultrasound guided arterial access INDICATION: Chest pain, shortness breath concerning for unstable angina CONSENT:I have discussed the risks, benefits and alternative therapies for the above-mentioned procedure and for both sedation/analgesia as well as necessary blood product administration, if indicated, as they pertain to this patient. The patient has indicated understanding and acceptance of the risks and procedures discussed. PROCEDURE: After the risks, benefits and alternatives of the above mentioned procedure explained in detail with the patient, informed consent was obtained. Patient was taken to the catheterization lab and prepped and draped in usual fashion. Ultrasound guidance was used to assess for arterial access. 1% lidocaine was used to anesthetize the right radial artery. A 6-Pakistani sheath was placed in the right radial artery using modified Seldinger technique and ultrasound guidance. Left coronary angiography was performed with a 5-Pakistani JL 3.5 catheter and right coronary angiography was performed with a 6-Pakistani AL1 catheter in various views. A 5-Pakistani AR2 catheter was inserted into the left ventricle and pressure measurements were obtained. The right radial sheath was removed and a TR band was placed with hemostasis achieved. The patient tolerated the procedure well. Patient was transported back to the post catheterization holding area in stable condition. Conscious Sedation: Patient was monitored under the direct supervision of myself for conscious sedation using Versed and fentanyl for a total duration of 12 minutes HEMODYNAMICS: Aorta: 131/77 LV: 128/10, LVEDP 22 SELECTIVE CORONARY ARTERIOGRAPHY: LEFT MAIN: The left main is a large caliber vessel which bifurcates into the LAD and circumflex. There is no significant stenosis. LEFT ANTERIOR DESCENDING CORONARY ARTERY: LAD is a large caliber vessel which stops short of the apex of the apex being supplied by the PDA. There is no significant stenosis. LEFT CIRCUMFLEX CORONARY ARTERY: Left circumflex is a moderate caliber vessel without significant stenosis. RIGHT CORONARY ARTERY: The right coronary artery is a large caliber vessel which gives off a PDA and PLV branch and is the dominant vessel. There is no significant stenosis. FINAL IMPRESSION: 1. Normal coronary arteries as described above. 2. Elevated left sided filling pressures PLAN: 1. Aggressive risk factor modification per most recent ACC/AHA guidelines. 2. Follow-up in the office in 1-2 weeks.
[2023-05-30] MEDS: ACETAMINOPHEN TAB 325 MG TAB PO PRN ×2 (14:49→23:51)
--- NOTE | 2023-05-30 19:53 | P.PN ---
Subjective Progress Note Date: 05/30/23 Pt feeling well today, s/p catheterization which did not show advanced CAD, she did experience an episode of AF with RVR around 11 am with HR to 140s and pt started on verapamil 40 mg. She denies shortness of breath. Objective - Vital Signs Vital signs: Vital Signs Temp 97.7 F 05/30/23 16:00 Pulse 72 05/30/23 16:00 Resp 17 05/30/23 16:00 BP 116/71 05/30/23 16:00 Pulse Ox 96 05/30/23 16:00 FiO2 Intake & Output 05/30/23 05/30/23 05/31/23 06:59 18:59 06:59 Intake Total 53.83 720 Balance 53.83 720 Intake: Intake, IV Titration 53.83 Amount Heparin Sod,Pork in 0.45% 53.83 NaCl 25,000 unit In 0.45 % NaCl 1 250ml.bag @ 10.5 UNITS/KG/HR 10.002 mls/ hr IV .Q24H [facility] Rx#: [id number] Oral 720 Other: Voiding Method Toilet Toilet # Voids 2 3 - Exam Gen: well developed, well nourished NAD CV: normal rate, no murmur Lungs: CTAB Abd: soft, nontender - Labs CBC & Chem 7: 05/29/23 06:23 05/30/23 08:44 Labs: Abnormal Lab Results - Last 24 Hours (Table) 05/30/23 05/30/23 05/30/23 Range/Units 01:27 08:44 08:44 APTT 41.0 H 50.4 H (22.0-30.0) sec Sodium 134 L (137-145) mmol/L Carbon Dioxide 19 L (22-30) mmol/L Creatinine 1.09 H (0.52-1.04) mg/dL Glucose 121 H (74-99) mg/dL Assessment and Plan Plan: Continue with amiodarone, metoprolol, eliquis. Start verapamil per Cardiology. Continue to closely monitor HR. Discharge planning anticipate tomorrow
[2023-05-30] MEDS: AMITRIPTYLINE HCL 25 MG TAB PO SCH (21:11)
[2023-05-30] MEDS: ALPRAZolam 0.5 MG TAB PO PRN (23:51)
[2023-05-31] MEDS: LEVOTHYROXINE 88 MCG TAB PO SCH (05:53)
[2023-05-31 07:59] VITALS: TEMP 97.5
[2023-05-31] MEDS: DULoxetine HCL 30 MG CAPSULE.DR PO SCH (08:11)
[2023-05-31] MEDS: PANTOPRAZOLE 40 MG TABLET PO SCH (08:11)
[2023-05-31] MEDS: amLODIPine 5 MG TAB PO SCH (08:11)
[2023-05-31] MEDS: ASPIRIN 81 MG PO SCH (08:11)
[2023-05-31] MEDS: MONTELUKAST 10 MG TAB PO SCH (08:11)
[2023-05-31] MEDS: METOPROLOL TARTRATE 50 MG TAB PO SCH (08:11)
[2023-05-31] MEDS: APIXABAN 5 MG TAB PO SCH (08:11)
[2023-05-31] MEDS: AMIODARONE 200 MG TAB PO SCH (08:11)
[2023-05-31] MEDS: lisinopriL 10 MG TAB PO SCH (08:11)
[2023-05-31] MEDS: FOLIC ACID-VIT B COMPLEX-VIT C 1 CAP PO SCH (08:12)
[2023-05-31] MEDS: VERAPAMIL 40 MG TAB PO SCH (08:12)
[2023-05-31] MEDS: buPROPion XL 150 MG TAB.ER.24H PO SCH (08:12)
[2023-05-31] MEDS: NON FORMULARY DRUG (Dextroamphetamine/Amphetamine [Adderall] 20 MG Tablet) PO SCH (08:12)
[2023-05-31] MEDS ORDERED: amLODIPine 5 MG TAB PO ONE (11:00)
--- NOTE | 2023-05-31 13:33 | P.DS ---
Providers Date of admission: 05/27/23 18:16 Expected date of discharge: 05/31/23 Attending physician: Carlyle Rust MD Consults: 05/27/23 18:16 Consult Physician Urgent Consulting Provider: Jakob Lee Consult Reason/Comments: cp, a-fib Do you want consulting provider notified?: Yes Primary care physician: Arianna Lopes Hospital Course: Discharge diagnoses; Chest pain Paroxysmal atrial fibrillation and RVR. Recently diagnosed approximately 2 weeks ago with atrial fibrillation in clinic with PCP, started on Eliquis. Hypertension Hyperlipidemia Pulmonary sarcoidosis Erythema nodosum Morbid obesity, BMI 33 Hospital course; This is a 58-year-old female with past medical history significant for recently diagnosed atrial fibrillation, CAD, asthma, DVT, fibromyalgia, hypertension, rheumatoid arthritis, sarcoidosis, ongoing nicotine dependence, erythema nodosum, presented to the ER with shortness of breath, mild mid sternal chest heaviness, diaphoresis, nausea and vomiting and multiple other medical issues. On admission noted to be in atrial flutter with RVR with Cardizem drip initiated. Anticoagulated on heparin drip. Continues to feel chest heaviness and shortness of breath. Amiodarone drip recently initiated. EKG reported atrial fibrillation with RVR, troponin negative 3 , proBNP 8950. chest x-ray reported cardiomegaly with pulmonary basilar fibrotic change. Afebrile WBC 11.5, hemoglobin 12.2, platelets 174, INR 1.1. Potassium 3.4, repeat level ordered. BUN 11, creatinine 1.07, glucose 127, magnesium 1.6, repeat level ordered. Alk phos 170. 05/31. Patient seen and examined. Dr. Wright took over care. Status post cardiac cath on 05/30 showed normal coronary arteries, cardiology recommended aggressive risk factor modification. Patient being discharged on metoprolol and amiodarone. Continue Eliquis. Cardiology cleared the patient for discharge PHYSICAL EXAMINATION: GENERAL: The patient is alert and oriented x3, not in any acute distress. Well developed, well nourished. HEENT: Pupils are round and equally reacting to light. EOMI. No scleral icterus. No conjunctival pallor. Normocephalic, atraumatic. No pharyngeal erythema. No thyromegaly. CARDIOVASCULAR: S1 and S2 present. No murmurs, rubs, or gallops. PULMONARY: Chest is clear to auscultation, no wheezing or crackles. ABDOMEN: Soft, nontender, nondistended, normoactive bowel sounds. No palpable organomegaly. MUSCULOSKELETAL: No joint swelling or deformity. EXTREMITIES: No cyanosis, clubbing, or pedal edema. NEUROLOGICAL: Gross neurological examination did not reveal any focal deficits. SKIN: No rashes. Dictation was produced using Purple dictation software. please excuse any grammatical, word or spelling errors. Patient Condition at Discharge: Fair Plan - Discharge Summary Discharge Rx Participant: No New Discharge Prescriptions: New Metoprolol Tartrate [Lopressor] 50 mg PO BID #60 tab Amiodarone [Cordarone] 200 mg PO BID #60 tab Continue Pantoprazole Sodium [Protonix] 40 mg PO DAILY Montelukast [Singulair] 10 mg PO DAILY Butalb/Acetaminophen/Caffeine [Fioricet 50-325-40 mg Tablet] 1 tab PO Q8H PRN PRN Reason: Pain Furosemide [Lasix] 20 mg PO DAILY PRN PRN Reason: Edema Albuterol Nebulized [Ventolin Nebulized] 2.5 mg INHALATION RT-QID PRN PRN Reason: Shortness Of Breath buPROPion HCL [Wellbutrin XL] 150 mg PO DAILY DULoxetine HCL [Cymbalta] 30 mg PO BID Acetylcysteine [Nac] 500 mg PO DAILY amLODIPine BESYLATE/BENAZEPRIL [Lotrel 5-10 mg Capsule] 1 cap PO DAILY Dextroamphetamine/Amphetamine [Adderall] 20 mg PO BID Metoclopramide [Reglan] 10 mg PO TID PRN PRN Reason: Nausea And Vomiting Nystatin 100,000 Unit/gm Powd [Mycostatin Powder] 1 applic TOPICAL BID PRN PRN Reason: Skin Irritation Potassium Chloride ER [K-Dur 10] 10 meq PO DAILY PRN PRN Reason: w/lasix Super B-Complex 1 tab PO DAILY Amitriptyline HCl [Elavil] 25 mg PO HS Apixaban [Eliquis] 5 mg PO BID Budesonide [Pulmicort] 0.5 mg INHALATION DIRECTED PRN PRN Reason: Shortness Of Breath Ergocalciferol [Vitamin D2 (1250 Mcg = 76363 Iu)] 1,250 mcg PO Q7D Levothyroxine Sodium [Synthroid] 88 mcg PO DAILY Prasterone (Dhea) [Dhea 25] 25 mg PO DAILY Discontinued atenoloL [Tenormin] 50 mg PO BID Discharge Medication List Montelukast [Singulair] 10 mg PO DAILY 01/29/14 [History] Pantoprazole Sodium [Protonix] 40 mg PO DAILY 01/29/14 [History] Butalb/Acetaminophen/Caffeine [Fioricet 50-325-40 mg Tablet] 1 tab PO Q8H PRN 02/15/14 [History] Albuterol Nebulized [Ventolin Nebulized] 2.5 mg INHALATION RT-QID PRN 08/09/15 [History] Furosemide [Lasix] 20 mg PO DAILY PRN 08/09/15 [History] DULoxetine HCL [Cymbalta] 30 mg PO BID 12/27/16 [History] buPROPion HCL [Wellbutrin XL] 150 mg PO DAILY 12/27/16 [History] Acetylcysteine [Nac] 500 mg PO DAILY 05/27/23 [History] Amitriptyline HCl [Elavil] 25 mg PO HS 05/27/23 [History] Apixaban [Eliquis] 5 mg PO BID 05/27/23 [History] Budesonide [Pulmicort] 0.5 mg INHALATION DIRECTED PRN 05/27/23 [History] Dextroamphetamine/Amphetamine [Adderall] 20 mg PO BID 05/27/23 [History] Ergocalciferol [Vitamin D2 (1250 Mcg = 83817 Iu)] 1,250 mcg PO Q7D 05/27/23 [History] Levothyroxine Sodium [Synthroid] 88 mcg PO DAILY 05/27/23 [History] Metoclopramide [Reglan] 10 mg PO TID PRN 05/27/23 [History] Nystatin 100,000 Unit/gm Powd [Mycostatin Powder] 1 applic TOPICAL BID PRN 05/27/23 [History] Potassium Chloride ER [K-Dur 10] 10 meq PO DAILY PRN 05/27/23 [History] Prasterone (Dhea) [Dhea 25] 25 mg PO DAILY 05/27/23 [History] Super B-Complex 1 tab PO DAILY 05/27/23 [History] amLODIPine BESYLATE/BENAZEPRIL [Lotrel 5-10 mg Capsule] 1 cap PO DAILY 05/27/23 [History] Amiodarone [Cordarone] 200 mg PO BID #60 tab 05/30/23 [Rx] Metoprolol Tartrate [Lopressor] 50 mg PO BID #60 tab 05/30/23 [Rx] Follow up Appointment(s)/Referral(s): Arianna Lopes DO [Primary Care Provider] - 1-2 days John Arnold MD [STAFF PHYSICIAN] - 1 Week Discharge Disposition: HOME SELF-CARE
--- NOTE | 2023-05-31 14:25 | P.PN ---
Subjective Progress Note Date: 05/31/23 This is Logan Casey NP, I'm dictating on behalf of Dr. Sullivan's H&P and A&P. Patient was interviewed and examined. Patient is a pleasant 58-year-old female who presented to the hospital with A. delon with RVR with concurrent chest pain and non-elevated troponins. Patient underwent cardiac catheterization yesterday, which demonstrated no significant stenosis in any of her major coronary arteries. After cath, the patient did convert to normal sinus rhythm, and has maintained sinus mechanism since. This morning she reports that she's feeling okay. She is currently denying chest pain, shortness of breath, or bleeding. The cath site is closed, pulses are strong. GENERAL: Well-appearing, well-nourished and in no acute distress. NECK: Supple without JVD or thyromegaly. LUNGS: Breath sounds clear to auscultation bilaterally. Respiration equal and unlabored. No wheezes, rales or rhonchi. HEART: Regular rate and rhythm without murmurs, rubs or gallops. S1 and S2 heard. EXTREMITIES: Normal range of motion, no edema. No clubbing or cyanosis. Peripheral pulses intact and strong. VITALS: Temp 97.5, pulse 69, respirations 17, blood pressure 135/83, O2 saturation 97% on room air TELEMETRY: Sinus mechanism LABS: Sodium 134, potassium 3.8, BUN 12, creatinine 1.09, calcium 8.6 IMPRESSION: 1. Paroxysmal atrial fibrillation with rapid ventricular response 2. Chest pain 3. Hypertension 4. Hyperlipidemia 5. Pulmonary sarcoidosis 6. Erythema nodosum 7. Status post cardiac catheterization PLAN: Increase amlodipine to 10 mg daily. Stop verapamil. Have patient get up and walk in the hallway. If patient has no symptoms, patient may be discharged home at this time. Thank you for allowing us to participate in the care of this patient. Objective - Vital Signs Vital signs: Vital Signs Temp 97.5 F L 05/31/23 07:47 Pulse 64 05/31/23 08:10 Resp 17 05/31/23 08:10 BP 135/83 05/31/23 07:47 Pulse Ox 97 05/31/23 07:47 FiO2 Intake & Output 05/30/23 05/31/23 05/31/23 18:59 06:59 18:59 Intake Total 720 658 Balance 720 658 Intake: Oral 720 658 Other: Voiding Method Toilet Toilet Toilet # Voids 3 2 - Labs CBC & Chem 7: 05/29/23 06:23 05/30/23 08:44
[2023-05-31 19:35] VITALS: BP 132/77; PULSE 60; RESP 16
[2023-06-01] MEDS ORDERED: amLODIPine 10 MG TAB PO SCH (09:00)
--- NOTE | 2023-06-03 07:44 | PN ---
PROGRESS NOTE SUBJECTIVE: The patient is a lady who was seen by Dr. Lee in the office, came in with atrial fib rapid rate, had a previous abnormal stress test. Dr. Lee performed a cardiac cath yesterday which revealed moderate disease, advised medical therapy. She has converted to sinus rhythm. She is on a combination of amiodarone 200 mg b.i.d., metoprolol tartrate 50 mg b.i.d., doing well on this. We will increase activity and possibly discharge her today. OBJECTIVE: VITALS: Stable. NECK: No JVD. HEART: S1 and S2 heard normally. Regular rhythm. LUNGS: Clear. ABDOMEN: Unremarkable. EXTREMITIES: Lower extremities unremarkable. Right femoral site is clean and dry. She will see Dr. Lee in 1 week. She will go home on amiodarone and metoprolol combination. MMODL / IJN: [id number] /
== END 2023-05-31 16:38 | disposition home or self-care (01) | DRG 287 ==
LOC: EC 15:59 → 3SCARD 18:16
PROVIDERS: ADMIT Family Medicine; ATTEND Family Medicine
PROC: B2111ZZ Fluoroscopy of Multiple Coronary Arteries using Low Osmolar Contrast (ICD-10-PCS; principal; 2023-05-29 13:00)
PROC: 4A023N7 Measurement of Cardiac Sampling and Pressure, Left Heart, Percutaneous Approach (ICD-10-PCS; 2023-05-29 13:00)
DX: I48.0 Paroxysmal atrial fibrillation (principal); L52 Erythema nodosum; I11.0 Hypertensive heart disease with heart failure; I50.9 Heart failure, unspecified; I48.92 Unspecified atrial flutter; M06.9 Rheumatoid arthritis, unspecified; D86.0 Sarcoidosis of lung; E66.01 Morbid (severe) obesity due to excess calories; E78.5 Hyperlipidemia, unspecified; I25.10 Atherosclerotic heart disease of native coronary artery without angina pectoris; Z68.33 Body mass index [BMI] 33.0-33.9, adult; E07.9 Disorder of thyroid, unspecified; M79.7 Fibromyalgia; K21.9 Gastro-esophageal reflux disease without esophagitis; J45.909 Unspecified asthma, uncomplicated; G47.30 Sleep apnea, unspecified; F41.9 Anxiety disorder, unspecified; F32.A Depression, unspecified; H40.9 Unspecified glaucoma; L98.9 Disorder of the skin and subcutaneous tissue, unspecified; G43.909 Migraine, unspecified, not intractable, without status migrainosus; F17.210 Nicotine dependence, cigarettes, uncomplicated; Z71.6 Tobacco abuse counseling; Z79.01 Long term (current) use of anticoagulants; Z79.890 Hormone replacement therapy; Z79.51 Long term (current) use of inhaled steroids; Z79.899 Other long term (current) drug therapy; Z86.718 Personal history of other venous thrombosis and embolism; Z88.0 Allergy status to penicillin; Z88.2 Allergy status to sulfonamides; Z82.49 Family history of ischemic heart disease and other diseases of the circulatory system
CPT/HCPCS: 36415; 71045; 76937; 80048; 80053; 80061; 83735; 83880; 84443; 84484; 85025; 85610; 85730; 93005; 93306; 93458; 96374; 99291

== ENCOUNTER → 2023-05-27 | Outpatient (CLI) | payer MEDICARE, OTHER ==
[2023-05-27 18:46] LABS: HCT 39.4 % (37.2-46.3); HGB 12.4 g/dL (12.0-15.0); MCH 27.6 pg (27.0-32.0); MCHC 31.5 g/dL (32.0-37.0); MCV 87.6 FL (80.0-97.0); Mean Platelet Volume 11.8 FL (9.5-12.2); NRBC Per 100 WBC 0 X 10*3/uL (0.00-0.01); Platelet Count 264 X 10*3/uL (140-440); RDW 15.1 % (11.5-14.5); WBC 14.89 X 10*3/uL (4.50-10.00)
[2023-05-27 18:49] LABS: Blood Urea Nitrogen 9.7 mg/dL (9.0-27.0); Chloride 101 mmol/L (96-109); Potassium 3.9 mmol/L (3.5-5.5); Sodium 136 mmol/L (135-145)
== END | disposition home or self-care (01) ==
LOC: LABPAT 15:42
PROVIDERS: ATTEND Internal Medicine
DX: Z01.818 Encounter for other preprocedural examination (principal); I48.91 Unspecified atrial fibrillation; R94.31 Abnormal electrocardiogram [ECG] [EKG]; R06.02 Shortness of breath
CPT/HCPCS: 80051; 82565; 84520; 85027

== ENCOUNTER 2023-06-07 16:54 | Inpatient (IN) | payer MEDICARE, OTHER ==
[2023-06-07] MEDS ORDERED: DILTIAZEM DRIP BOLUS FROM BAG 1 MG SOLN IV ONE (17:22)
[2023-06-07] MEDS ORDERED: SODIUM CHLORIDE 0.9% 1,000 ML IV STA ×2 (17:22→18:14)
--- NOTE | 2023-06-07 17:24 | ED ---
Arrhythmia/Palpitations HPI - General Chief Complaint: Chest Pain Stated Complaint: Increased Heart Rate Time Seen by Provider: 06/07/23 17:14 Source: patient, RN notes reviewed, old records reviewed Mode of arrival: ambulatory Limitations: no limitations - History of Present Illness Initial Comments: This is a 58-year-old female to the emergency department for evaluation. Patient sent to us for evaluation regards to elevated heart rate palpitations with chest pain or shortness of breath. Similar symptoms a few months ago shortness of breath. Patient has remote history of smoking but does not have any history of wheezing of COPD. Dr. Jenkins at home excluding of shortness of breath today. MD Complaint: rapid heart beat, "heart racing", palpitations -: days(s) Arrhythmia History: atrial fibrillation, SVT Associated Symptoms: chest pain, shortness of breath, near-syncope Treatments Prior to Arrival: other (0) - Related Data Home Medications Medication Instructions Recorded Confirmed Montelukast [Singulair] 10 mg PO DAILY 01/29/14 06/07/23 Pantoprazole Sodium [Protonix] 40 mg PO DAILY 01/29/14 06/07/23 Butalb/Acetaminophen/Caffeine 1 tab PO Q8H PRN 02/15/14 06/07/23 [Fioricet 50-325-40 mg Tablet] Albuterol Nebulized [Ventolin 2.5 mg INHALATION RT-QID PRN 08/09/15 06/07/23 Nebulized] buPROPion HCL [Wellbutrin XL] 150 mg PO DAILY 12/27/16 06/07/23 Acetylcysteine [Nac] 500 mg PO DAILY 05/27/23 06/07/23 Apixaban [Eliquis] 5 mg PO BID 05/27/23 06/07/23 Budesonide [Pulmicort] 0.5 mg INHALATION DIRECTED PRN 05/27/23 06/07/23 Ergocalciferol [Vitamin D2 (1250 1,250 mcg PO Q7D 05/27/23 06/07/23 Mcg = 85863 Iu)] Levothyroxine Sodium [Synthroid] 88 mcg PO DAILY 05/27/23 06/07/23 Metoclopramide [Reglan] 10 mg PO TID PRN 05/27/23 06/07/23 Nystatin 100,000 Unit/gm Powd 1 applic TOPICAL BID PRN 05/27/23 06/07/23 [Mycostatin Powder] Previous Rx's Medication Instructions Recorded DULoxetine HCL [Cymbalta] 30 mg PO DAILY #0 06/11/23 Metoprolol Succinate (ER) [Toprol 50 mg PO DAILY #90 tab 06/11/23 XL] Torsemide [Demadex] 20 mg PO DAILY #30 tab 06/11/23 amLODIPine BESYLATE/BENAZEPRIL 1 each PO DAILY #1 capsule 06/11/23 [Lotrel 5-10 mg Capsule] Allergies Allergy/AdvReac Type Severity Reaction Status Date / Time adhesive Allergy Rash/Hives Verified 06/07/23 19:19 Penicillins Allergy Dyspnea, Verified 06/07/23 19:19 itchy, hives Sulfa (Sulfonamide Allergy Confusion, Verified 06/07/23 19:19 Antibiotics) high fever Review of Systems ROS Statement: Those systems with pertinent positive or pertinent negative responses have been documented in the HPI. ROS Other: All systems not noted in ROS Statement are negative. Past Medical History Past Medical History: Atrial Fibrillation, Asthma, Deep Vein Thrombosis (DVT), Eye Disorder, Fibromyalgia, GERD/Reflux, Hypertension, Pneumonia, Rheumatoid Arthritis (RA), Skin Disorder, Sleep Apnea/CPAP/BIPAP, Thyroid Disorder Additional Past Medical History / Comment(s): gout, sarcoidosis, glaucoma, NO CURRENT MEDS FOR GLAUCOMA, migraines, HX arrhythmia, no cpap used, degenerative disk disease, spinal stenosis, constipation, hx ulcer, hiatal herni a, dry spots and skin irritation- sores on legs erythemia nodosum History of Any Multi-Drug Resistant Organisms: None Reported Past Surgical History: Cholecystectomy, Heart Catheterization Additional Past Surgical History / Comment(s): lung biopsy, LEG AND ABDOMEN BIOPSY, rt cataract Past Anesthesia/Blood Transfusion Reactions: No Reported Reaction Past Psychological History: Anxiety, Depression Smoking Status: Current every day smoker Past Alcohol Use History: Rare Past Drug Use History: Marijuana - Past Family History Mother Family Medical History: COPD, GERD/Reflux, Hypertension, Osteoarthritis (OA) Additional Family Medical History / Comment(s): Mother is 77 yrs old. Father Family Medical History: Hypertension Additional Family Medical History / Comment(s): Father is an amputee of the R leg. Father is 73 yrs old. Brother(s) Family Medical History: Cancer Additional Family Medical History / Comment(s): leukemia General Exam Limitations: no limitations General appearance: alert, in no apparent distress, anxious Head exam: Present: atraumatic, normocephalic, normal inspection Eye exam: Present: normal appearance, PERRL, EOMI. Absent: scleral icterus, conjunctival injection, periorbital swelling ENT exam: Present: normal exam, mucous membranes moist Neck exam: Present: normal inspection. Absent: tenderness, meningismus, lymphadenopathy Respiratory exam: Present: normal lung sounds bilaterally. Absent: respiratory distress, wheezes, rales, rhonchi, stridor Cardiovascular Exam: Present: tachycardia, irregular rhythm, normal heart sounds. Absent: systolic murmur, diastolic murmur, rubs, gallop, clicks GI/Abdominal exam: Present: soft, normal bowel sounds. Absent: distended, tenderness, guarding, rebound, rigid Extremities exam: Present: normal inspection, full ROM, normal capillary refill. Absent: tenderness, pedal edema, joint swelling, calf tenderness Back exam: Present: normal inspection Neurological exam: Present: alert, oriented X3, CN II-XII intact Psychiatric exam: Present: normal affect, normal mood Skin exam: Present: warm, dry, intact, normal color. Absent: rash Course Vital Signs 06/07/23 06/07/23 06/07/23 17:08 18:03 20:00 Temperature 98.6 F Pulse Rate 138 H 137 H 137 H Respiratory 20 20 20 Rate Blood Pressure 135/93 151/106 137/96 O2 Sat by Pulse 98 94 L 96 Oximetry 06/07/23 06/07/23 06/08/23 21:00 23:48 01:29 Temperature Pulse Rate 137 H 140 H 137 H Respiratory 20 20 18 Rate Blood Pressure 145/99 133/86 126/89 O2 Sat by Pulse 95 94 L 94 L Oximetry 06/08/23 06/08/23 06/08/23 02:44 05:30 07:18 Temperature Pulse Rate 141 H 141 H 140 H Respiratory 18 18 16 Rate Blood Pressure 135/85 130/81 135/94 O2 Sat by Pulse 95 98 Oximetry 06/08/23 06/08/23 06/08/23 08:51 10:00 11:58 Temperature Pulse Rate 69 68 97 Respiratory 16 16 18 Rate Blood Pressure 108/73 120/61 129/92 O2 Sat by Pulse 94 L 94 L 95 Oximetry 06/08/23 14:20 Temperature Pulse Rate 93 Respiratory 18 Rate Blood Pressure 115/56 O2 Sat by Pulse 95 Oximetry - Reevaluation(s) Reevaluation #1: 06/07/23 18:15 Medical record is reviewed Reevaluation #2: 06/07/23 18:15 Patient symptoms difficult to control, heart rate is still elevated Reevaluation #3: 06/07/23 18:16 The patient regarding findings and questions have been answered Reevaluation #4: 06/07/23 17:23 Was pt. sent in by a medical professional or institution (, MARCELA, [facility] CLASS[employer], urgent care, hospital, or long-term...) When possible be specific @ -no Did you speak to anyone other than the patient for history (EMS, parent, family, police, friend...)? What history was obtained from this source @ -no Did you review nursing and triage notes (agree or disagree)? Why? @ -agree Are old charts reviewed (outside hosp., previous admission, EMS record, old EKG, old radiological studies, urgent care reports/EKG's, long-term records)? Report findings @ -yes Differential Diagnosis (chest pain, altered mental status, abdominal pain women, abdominal pain men, vaginal bleeding, weakness, fever, dyspnea, syncope, headache, dizziness, GI bleed, back pain, seizure, CVA, palpatations, mental health, musculoskeletal)? @ -prior EKG interpreted by me (3pts min.). @ -yes X-rays interpreted by me (1pt min.). @ -yes 8F for acute disease CT interpreted by me (1pt min.). @ -no U/S interpreted by me (1pt. min.). @ -no What testing was considered but not performed or refused? (CT, X-rays, U/S, labs)? Why? @ -none What meds were considered but not given or refused? Why? @ -none Did you discuss the management of the patient with other professionals (professionals i.e. MARCELA Mejía, [employer] CLASS[employer], lab, RT, psych nurse, social media community manager, junior high school teacher, teacher, security control room officer, family service caseworker)? Give summary @ -no Was smoking cessation discussed for >3mins.? @ -no Was critical care preformed (if so, how long)? @ -yes31 Were there social determinants of health that impacted care today? How? (Homelessness, low income, unemployed, alcoholism, drug addiction, transportati on, low edu. Level, literacy, decrease access to med. care, nursing home, rehab)? @ -none Was there de-escalation of care discussed even if they declined (Discuss DNR or withdrawal of care, Hospice)? DNR status @ -no What co-morbidities impacted this encounter? (DM, HTN, Smoking, COPD, CAD, Cancer, CVA, ARF, Chemo, Hep., AIDS, mental health diagnosis, sleep apnea, morbid obesity)? @ -none Was patient admitted / discharged? Hospital course, mention meds given and route, prescriptions, significant lab abnormalities, going to OR and other pertinent info. @ - 58 female to the emergency department for evaluation of elevated heart rate palpitations found to be nature fibrillation with RVR a flutter, patient be admitted for cardiology evaluation Admitted Undiagnosed new problem with uncertain prognosis? @ -no Drug Therapy requiring intensive monitoring for toxicity (Heparin, Nitro, Insulin, Cardizem)? @ -no Were any procedures done? @ -no Diagnosis/symptom? @ -Atrial fibrillation with RVR and arrhythmia Acute, or Chronic, or Acute on Chronic? @ -Acute Uncomplicated (without systemic symptoms) or Complicated (systemic symptoms)? @ -Complicated Side effects of treatment? @ -no Exacerbation, Progression, or Severe Exacerbation? @ -exacerbation Poses a threat to life or bodily function? How? (Chest pain, USA, SD, pneumonia, PE, COPD, DKA, ARF, appy, cholecystitis, CVA, Diverticulitis, Homicidal, Suicidal, threat to staff... and all critical care pts) @ -yes with significant arrhythmia Reevaluation #5: 06/07/23 17:23 Differential Palpitations Ventricular arrhythmias, atrial arrhythmias, myocardial infarction, anemia, thyrotoxicosis, electrolyte imbalance, hypokalemia, pulmonary embolism, pulmonary disease, drugs, alcohol, anxiety, stress.... This is not meant to be an all-inclusive list. - Consultations Consultation #1: Spoke with [facility] we'll admit this patient EKG Findings - EKG Comments: EKG Findings:: EKG shows a flutter with tachycardia RVR 136 QRS 104 QTC 375 - EKG Results: EKG: interpreted by ERMD Medical Decision Making - Medical Decision Making 58 female to the emergency department for evaluation of elevated heart rate palpitations found to be nature fibrillation with RVR a flutter, patient be admitted for cardiology evaluation - Lab Data Result diagrams: 06/08/23 03:00 06/08/23 03:00 Lab Results 06/07/23 06/07/23 06/07/23 Range/Units 17:54 17:54 17:54 WBC 10.5 (3.8-10.6) k/uL RBC 4.26 (3.80-5.40) m/uL Hgb 12.1 (11.4-16.0) gm/dL Hct 37.3 (34.0-46.0) % MCV 87.4 (80.0-100.0) fL MCH 28.4 (25.0-35.0) pg MCHC 32.4 (31.0-37.0) g/dL RDW 14.6 (11.5-15.5) % Plt Count 287 (150-450) k/uL MPV 8.9 Neutrophils % 69 % Lymphocytes % 21 % Monocytes % 4 % Eosinophils % 4 % Basophils % 1 % Neutrophils # 7.2 (1.3-7.7) k/uL Lymphocytes # 2.3 (1.0-4.8) k/uL Monocytes # 0.4 (0-1.0) k/uL Eosinophils # 0.4 (0-0.7) k/uL Basophils # 0.1 (0-0.2) k/uL PT 11.3 (10.0-12.5) sec INR 1.0 (<1.2) APTT 26.2 (22.0-30.0) sec Sodium 139 (137-145) mmol/L Potassium 3.6 (3.5-5.1) mmol/L Chloride 103 (98-107) mmol/L Carbon Dioxide 25 (22-30) mmol/L Anion Gap 11 mmol/L BUN 11 (7-17) mg/dL Creatinine 1.05 H (0.52-1.04) mg/dL Est GFR (CKD-EPI)AfAm 67 (>60 ml/min/1.73 sqM) Est GFR (CKD-EPI)NonAf 58 (>60 ml/min/1.73 sqM) Glucose 144 H (74-99) mg/dL Calcium 9.2 (8.4-10.2) mg/dL Phosphorus 3.5 (2.5-4.5) mg/dL Magnesium 1.7 (1.6-2.3) mg/dL Total Bilirubin 0.8 (0.2-1.3) mg/dL AST 26 (14-36) U/L ALT 20 (4-34) U/L Alkaline Phosphatase 136 H (38-126) U/L Troponin I (0.000-0.034) ng/mL NT-Pro-B Natriuret Pep 7140 pg/mL Total Protein 7.9 (6.3-8.2) g/dL Albumin 3.8 (3.5-5.0) g/dL TSH 2.840 (0.465-4.680) mIU/L Urine Color Urine Appearance (Clear) Urine pH (5.0-8.0) Ur Specific Elizabeth (1.001-1.035) Urine Protein (Negative) Urine Glucose (UA) (Negative) Urine Ketones (Negative) Urine Blood (Negative) Urine Nitrite (Negative) Urine Bilirubin (Negative) Urine Urobilinogen (<2.0) mg/dL Ur Leukocyte Esterase (Negative) 06/07/23 06/08/23 06/08/23 Range/Units 17:54 00:06 03:00 WBC (3.8-10.6) k/uL RBC (3.80-5.40) m/uL Hgb (11.4-16.0) gm/dL Hct (34.0-46.0) % MCV (80.0-100.0) fL MCH (25.0-35.0) pg MCHC (31.0-37.0) g/dL RDW (11.5-15.5) % Plt Count (150-450) k/uL MPV Neutrophils % % Lymphocytes % % Monocytes % % Eosinophils % % Basophils % % Neutrophils # (1.3-7.7) k/uL Lymphocytes # (1.0-4.8) k/uL Monocytes # (0-1.0) k/uL Eosinophils # (0-0.7) k/uL Basophils # (0-0.2) k/uL PT (10.0-12.5) sec INR (<1.2) APTT (22.0-30.0) sec Sodium (137-145) mmol/L Potassium (3.5-5.1) mmol/L Chloride (98-107) mmol/L Carbon Dioxide (22-30) mmol/L Anion Gap mmol/L BUN (7-17) mg/dL Creatinine (0.52-1.04) mg/dL Est GFR (CKD-EPI)AfAm (>60 ml/min/1.73 sqM) Est GFR (CKD-EPI)NonAf (>60 ml/min/1.73 sqM) Glucose (74-99) mg/dL Calcium (8.4-10.2) mg/dL Phosphorus (2.5-4.5) mg/dL Magnesium (1.6-2.3) mg/dL Total Bilirubin (0.2-1.3) mg/dL AST (14-36) U/L ALT (4-34) U/L Alkaline Phosphatase (38-126) U/L Troponin I <0.012 <0.012 <0.012 (0.000-0.034) ng/mL NT-Pro-B Natriuret Pep pg/mL Total Protein (6.3-8.2) g/dL Albumin (3.5-5.0) g/dL TSH (0.465-4.680) mIU/L Urine Color Urine Appearance (Clear) Urine pH (5.0-8.0) Ur Specific Elizabeth (1.001-1.035) Urine Protein (Negative) Urine Glucose (UA) (Negative) Urine Ketones (Negative) Urine Blood (Negative) Urine Nitrite (Negative) Urine Bilirubin (Negative) Urine Urobilinogen (<2.0) mg/dL Ur Leukocyte Esterase (Negative) 06/08/23 06/08/23 06/09/23 Range/Units 03:00 03:00 03:34 WBC 9.8 (3.8-10.6) k/uL RBC 4.28 (3.80-5.40) m/uL Hgb 12.3 (11.4-16.0) gm/dL Hct 37.8 (34.0-46.0) % MCV 88.3 (80.0-100.0) fL MCH 28.8 (25.0-35.0) pg MCHC 32.6 (31.0-37.0) g/dL RDW 14.8 (11.5-15.5) % Plt Count 242 (150-450) k/uL MPV 9.3 Neutrophils % 72 % Lymphocytes % 21 % Monocytes % 3 % Eosinophils % 2 % Basophils % 1 % Neutrophils # 7.0 (1.3-7.7) k/uL Lymphocytes # 2.1 (1.0-4.8) k/uL Monocytes # 0.3 (0-1.0) k/uL Eosinophils # 0.2 (0-0.7) k/uL Basophils # 0.1 (0-0.2) k/uL PT (10.0-12.5) sec INR (<1.2) APTT (22.0-30.0) sec Sodium 142 (137-145) mmol/L Potassium 3.4 L (3.5-5.1) mmol/L Chloride 105 (98-107) mmol/L Carbon Dioxide 25 (22-30) mmol/L Anion Gap 12 mmol/L BUN 9 (7-17) mg/dL Creatinine 1.03 (0.52-1.04) mg/dL Est GFR (CKD-EPI)AfAm 68 (>60 ml/min/1.73 sqM) Est GFR (CKD-EPI)NonAf 59 (>60 ml/min/1.73 sqM) Glucose 131 H (74-99) mg/dL Calcium 9.0 (8.4-10.2) mg/dL Phosphorus (2.5-4.5) mg/dL Magnesium (1.6-2.3) mg/dL Total Bilirubin (0.2-1.3) mg/dL AST (14-36) U/L ALT (4-34) U/L Alkaline Phosphatase (38-126) U/L Troponin I (0.000-0.034) ng/mL NT-Pro-B Natriuret Pep pg/mL Total Protein (6.3-8.2) g/dL Albumin (3.5-5.0) g/dL TSH (0.465-4.680) mIU/L Urine Color Colorless Urine Appearance Clear (Clear) Urine pH 5.0 (5.0-8.0) Ur Specific Elizabeth 1.007 (1.001-1.035) Urine Protein Negative (Negative) Urine Glucose (UA) Negative (Negative) Urine Ketones Negative (Negative) Urine Blood Negative (Negative) Urine Nitrite Negative (Negative) Urine Bilirubin Negative (Negative) Urine Urobilinogen <2.0 (<2.0) mg/dL Ur Leukocyte Esterase Negative (Negative) - EKG Data -: EKG Interpreted by Me Critical Care Time Critical Care Time: Yes Total Critical Care Time: 31 Disposition Clinical Impression: Atrial fibrillation with rapid ventricular response, Dyspnea Disposition: ADMITTED IP TO THIS HOSP Condition: Fair Is patient prescribed a controlled substance at d/c from ED?: No Time of Disposition: 18:10
[2023-06-07] MEDS: DILTIAZEM 125 MG in SODIUM CHLORIDE 0.9% 100 ML IV SCH (18:11)
[2023-06-07 18:12] LABS: Basophils # (A) 0.1 k/uL (0-0.2); Basophils % (A) 1 %; Eosinophils # (A) 0.4 k/uL (0-0.7); Eosinophils % (A) 4 %; HCT 37.3 % (34.0-46.0); HGB 12.1 gm/dL (11.4-16.0); Lymphocytes # (A) 2.3 k/uL (1.0-4.8); Lymphocytes % (A) 21 %; MCH 28.4 pg (25.0-35.0); MCHC 32.4 g/dL (31.0-37.0); MCV 87.4 fL (80.0-100.0); Mean Platelet Volume 8.9; Monocytes # (A) 0.4 k/uL (0-1.0); Monocytes % (A) 4 %; Neutrophils # (A) 7.2 k/uL (1.3-7.7); Neutrophils % (A) 69 %; Platelet Count 287 k/uL (150-450); RBC 4.26 m/uL (3.80-5.40); RDW 14.6 % (11.5-15.5); WBC 10.5 k/uL (3.8-10.6)
[2023-06-07] MEDS ORDERED: SODIUM CHLORIDE 0.9% 500 ML 500 ML IV STA (18:14)
[2023-06-07] MEDS ORDERED: METOPROLOL TARTRATE 5 MG/5 ML VIAL IVP STA (18:14)
[2023-06-07 18:24] LABS: ALT 20 U/L (4-34); AST 26 U/L (14-36); African American GFR (CKD) 67 (>60 ml/min/1.73 sqM); Albumin 3.8 g/dL (3.5-5.0); Alkaline Phosphatase 136 U/L (38-126); Anion Gap 11 mmol/L; Blood Urea Nitrogen 11 mg/dL (7-17); Calcium 9.2 mg/dL (8.4-10.2); Carbon Dioxide 25 mmol/L (22-30); Chloride 103 mmol/L (98-107); Glucose 144 mg/dL (74-99); Magnesium 1.7 mg/dL (1.6-2.3); Non-African American GFR(CKD) 58 (>60 ml/min/1.73 sqM); Phosphorus 3.5 mg/dL (2.5-4.5); Potassium 3.6 mmol/L (3.5-5.1); Sodium 139 mmol/L (137-145); Total Bilirubin 0.8 mg/dL (0.2-1.3); Total Protein 7.9 g/dL (6.3-8.2)
[2023-06-07 18:32] LABS: NT-Pro-B-Type Natriuretic Pept 7140 pg/mL
[2023-06-07 18:36] LABS: Partial Thromboplastin Time 26.2 sec (22.0-30.0); Prothrombin Time 11.3 sec (10.0-12.5)
[2023-06-07] MEDS ORDERED: NALOXONE 0.4 MG/ML 1 ML VIAL IV PRN (22:20)
[2023-06-07] MEDS ORDERED: ASPIRIN 81 MG PO STA (22:22)
[2023-06-08] MEDS ORDERED: AMIODARONE 360 MG in DEXTROSE 5% IN WATER 200 ML IV ONE ×2 (02:06)
[2023-06-08 03:24] LABS: Basophils # (A) 0.1 k/uL (0-0.2); Basophils % (A) 1 %; Eosinophils # (A) 0.2 k/uL (0-0.7); Eosinophils % (A) 2 %; HCT 37.8 % (34.0-46.0); HGB 12.3 gm/dL (11.4-16.0); Lymphocytes # (A) 2.1 k/uL (1.0-4.8); Lymphocytes % (A) 21 %; MCH 28.8 pg (25.0-35.0); MCHC 32.6 g/dL (31.0-37.0); MCV 88.3 fL (80.0-100.0); Mean Platelet Volume 9.3; Monocytes # (A) 0.3 k/uL (0-1.0); Monocytes % (A) 3 %; Neutrophils % (A) 72 %; Platelet Count 242 k/uL (150-450); RBC 4.28 m/uL (3.80-5.40); RDW 14.8 % (11.5-15.5); WBC 9.8 k/uL (3.8-10.6)
[2023-06-08 03:32] LABS: African American GFR (CKD) 68 (>60 ml/min/1.73 sqM); Anion Gap 12 mmol/L; Blood Urea Nitrogen 9 mg/dL (7-17); Carbon Dioxide 25 mmol/L (22-30); Chloride 105 mmol/L (98-107); Glucose 131 mg/dL (74-99); Non-African American GFR(CKD) 59 (>60 ml/min/1.73 sqM); Potassium 3.4 mmol/L (3.5-5.1); Sodium 142 mmol/L (137-145)
[2023-06-08] MEDS: DILTIAZEM 125 MG in SODIUM CHLORIDE 0.9% 100 ML IV SCH (06:17)
[2023-06-08] MEDS ORDERED: FUROSEMIDE 20 MG TAB PO PRN (07:29)
[2023-06-08] MEDS ORDERED: ALBUTEROL NEBULIZED 2.5 MG/3 ML INHALATION PRN (07:29)
[2023-06-08] MEDS ORDERED: BUDESONIDE 0.5 MG/2 ML NEBU INHALATION PRN (07:29)
[2023-06-08] MEDS ORDERED: METOCLOPRAMIDE 10 MG TAB PO PRN (07:29)
[2023-06-08] MEDS: MONTELUKAST 10 MG TAB PO SCH (07:49)
[2023-06-08] MEDS: PANTOPRAZOLE 40 MG TABLET PO SCH (07:49)
[2023-06-08] MEDS: METOPROLOL TARTRATE 50 MG TAB PO SCH ×2 (07:49→20:23)
[2023-06-08] MEDS ORDERED: AMIODARONE 200 MG TAB PO SCH (08:00)
--- NOTE | 2023-06-08 08:07 | P.HPIM ---
History of Present Illness This is a pleasant 58 years old female with past medical history of multiple medical problems including A. fib on blood thinner at home, she was recently discharged from this facility about one week ago for similar problem of A. fib. She did not feel completely well and cleared gradually she started feeling the notation of her heart with little exertional dyspnea and fairly mild central chest pain which is nonspecific. Her palpitation got worse so she decided to come to the hospital yesterday. She she denies abdominal pain, no change in urine or bowel habits were no dysuria, she has little headache but no dizziness weakness or numbness. She smokes 2 cigarettes per day and she was counseled to quit she agrees but she declines the nicotine patch. Occasional alcohol and no illicit drugs. review she has unremarkable CBC, INR, BMP except for mildly high creatinine 1.05. Liver enzymes not elevated. EKG showing a flutter at 136. Troponin 2 are negative. TSH is 2.8. Heart rate still 137-140, she is saturating 94% on room air. Patient also feels very tired, with mild cough. Review of Systems Review of systems CONSTITUTIONAL: No fever, no malaise, no fatigue. HEENT: No recent visual problems or hearing problems. Denied any sore throat. CARDIOVASCULAR: No orthopnea, PND, no palpitations, no syncope. PULMONARY: No shortness of breath, no cough, no hemoptysis. GASTROINTESTINAL: No diarrhea, no nausea, no vomiting, no abdominal pain. Normoactive bowel sounds. NEUROLOGICAL: No headaches, no weakness, no numbness. HEMATOLOGICAL: Denies any bleeding or petechiae. GENITOURINARY: Denies any burning micturition, frequency, or urgency. MUSCULOSKELETAL/RHEUMATOLOGICAL: Denies any joint pain, swelling, or any muscle pain. ENDOCRINE: Denies any polyuria or polydipsia. Past Medical History Past Medical History: Atrial Fibrillation, Asthma, Deep Vein Thrombosis (DVT), Eye Disorder, Fibromyalgia, GERD/Reflux, Hypertension, Pneumonia, Rheumatoid Arthritis (RA), Skin Disorder, Sleep Apnea/CPAP/BIPAP, Thyroid Disorder Additional Past Medical History / Comment(s): gout, sarcoidosis, glaucoma, NO CURRENT MEDS FOR GLAUCOMA, migraines, HX arrhythmia, no cpap used, degenerative disk disease, spinal stenosis, constipation, hx ulcer, hiatal hernia, dry spots and skin irritation- sores on legs erythemia nodosum History of Any Multi-Drug Resistant Organisms: None Reported Past Surgical History: Cholecystectomy, Heart Catheterization Additional Past Surgical History / Comment(s): lung biopsy, LEG AND ABDOMEN BIOPSY, rt cataract Past Anesthesia/Blood Transfusion Reactions: No Reported Reaction Past Psychological History: Anxiety, Depression Smoking Status: Current every day smoker Past Alcohol Use History: Rare Past Drug Use History: Marijuana - Past Family History Mother Family Medical History: COPD, GERD/Reflux, Hypertension, Osteoarthritis (OA) Additional Family Medical History / Comment(s): Mother is 77 yrs old. Father Family Medical History: Hypertension Additional Family Medical History / Comment(s): Father is an amputee of the R leg. Father is 73 yrs old. Brother(s) Family Medical History: Cancer Additional Family Medical History / Comment(s): leukemia Medications and Allergies Home Medications Medication Instructions Recorded Confirmed Type Montelukast [Singulair] 10 mg PO DAILY 01/29/14 06/07/23 History Pantoprazole Sodium [Protonix] 40 mg PO DAILY 01/29/14 06/07/23 History Butalb/Acetaminophen/Caffeine 1 tab PO Q8H PRN 02/15/14 06/07/23 History [Fioricet 50-325-40 mg Tablet] Albuterol Nebulized [Ventolin 2.5 mg INHALATION RT-QID PRN 08/09/15 06/07/23 History Nebulized] Furosemide [Lasix] 20 mg PO DAILY PRN 08/09/15 06/07/23 History DULoxetine HCL [Cymbalta] 30 mg PO BID 12/27/16 06/07/23 History buPROPion HCL [Wellbutrin XL] 150 mg PO DAILY 12/27/16 06/07/23 History Acetylcysteine [Nac] 500 mg PO DAILY 05/27/23 06/07/23 History Amitriptyline HCl [Elavil] 25 mg PO HS 05/27/23 06/07/23 History Apixaban [Eliquis] 5 mg PO BID 05/27/23 06/07/23 History Budesonide [Pulmicort] 0.5 mg INHALATION DIRECTED PRN 05/27/23 06/07/23 History Dextroamphetamine/Amphetamine 20 mg PO DIRECTED 05/27/23 06/07/23 History [Adderall] Ergocalciferol [Vitamin D2 (1250 1,250 mcg PO Q7D 05/27/23 06/07/23 History Mcg = 66041 Iu)] Levothyroxine Sodium [Synthroid] 88 mcg PO DAILY 05/27/23 06/07/23 History Metoclopramide [Reglan] 10 mg PO TID PRN 05/27/23 06/07/23 History Nystatin 100,000 Unit/gm Powd 1 applic TOPICAL BID PRN 05/27/23 06/07/23 History [Mycostatin Powder] Potassium Chloride ER [K-Dur 10] 10 meq PO DAILY PRN 05/27/23 06/07/23 History Prasterone (Dhea) [Dhea 25] 25 mg PO DAILY 05/27/23 06/07/23 History Super B-Complex 1 tab PO DAILY 05/27/23 06/07/23 History amLODIPine BESYLATE/BENAZEPRIL 1 cap PO DAILY 05/27/23 06/07/23 History [Lotrel 5-10 mg Capsule] Amiodarone [Cordarone] 200 mg PO BID 30 Days #60 tab 05/31/23 06/07/23 Rx Metoprolol Tartrate [Lopressor] 50 mg PO BID 30 Days #60 tab 05/31/23 06/07/23 Rx Allergies Allergy/AdvReac Type Severity Reaction Status Date / Time adhesive Allergy Rash/Hives Verified 06/07/23 19:19 Penicillins Allergy Dyspnea, Verified 06/07/23 19:19 itchy, hives Sulfa (Sulfonamide Allergy Confusion, Verified 06/07/23 19:19 Antibiotics) high fever Physical Exam Vitals: Vital Signs Temp Pulse Resp BP Pulse Ox 06/08/23 07:18 140 H 16 135/94 98 06/08/23 05:30 141 H 18 130/81 06/08/23 02:44 141 H 18 135/85 95 06/08/23 01:29 137 H 18 126/89 94 L 06/07/23 23:48 140 H 20 133/86 94 L 06/07/23 21:00 137 H 20 145/99 95 06/07/23 20:00 137 H 20 137/96 96 06/07/23 18:03 137 H 20 151/106 94 L 06/07/23 17:08 98.6 F 138 H 20 135/93 98 Intake and Output 06/07/23 06/08/23 06/08/23 22:59 06:59 14:59 Intake Total 16.5 108.5 Balance 16.5 108.5 Intake: Intake, IV Titration 16.5 108.5 Amount Diltiazem 125 mg In 16.5 108.5 Sodium Chloride 0.9% 100 ml @ 5 MG/HR 5 mls/hr IV .Q24H [facility] Rx#:[id number] Other: Weight 99.79 kg GENERAL: The patient is alert and oriented x3, not in any acute distress. Well developed, well nourished. HEENT: Pupils are round and equally reacting to light. EOMI. No scleral icterus. No conjunctival pallor. Normocephalic, atraumatic. No pharyngeal erythema. No thyromegaly. CARDIOVASCULAR: S1 and S2 present. No murmurs, rubs, or gallops. PULMONARY: Chest is clear to auscultation, no wheezing , no crackles. ABDOMEN: Soft, nontender, nondistended, normoactive bowel sounds. No palpable or ganomegaly. MUSCULOSKELETAL: No joint swelling or deformity. EXTREMITIES: No cyanosis, clubbing, or pedal edema. NEUROLOGICAL: Gross neurological examination did not reveal any focal deficits. SKIN: No rashes. no petechiae. Results CBC & Chem 7: 06/08/23 03:00 06/08/23 03:00 Labs: Abnormal Lab Results - Last 24 Hours (Table) 06/07/23 06/08/23 Range/Units 17:54 03:00 Potassium 3.4 L (3.5-5.1) mmol/L Creatinine 1.05 H (0.52-1.04) mg/dL Glucose 144 H 131 H (74-99) mg/dL Alkaline Phosphatase 136 H (38-126) U/L Assessment and Plan Assessment: A. fib with RVR, present on admission Hypertension COPD with no exacerbation Chronic kidney disease stage III Obesity with BMI of 54.5 Hyperlipidemia Pulmonary sarcoidosis Erythema nodosum Plan: Continue with Cardizem drip Resume her metoprolol and amiodarone Telemetry monitoring Cardiology consult Continue with Eliquis Check urine analysis on chest x-ray Labs and medication were reviewed.. Continue same treatment. Continue with symptomatic treatment. Resume home medication. Monitor labs and vitals. DVT and GI prophylaxis. Further recommendations as per clinical course of the patient DVT prophylaxis: Eliquis GI Prophylaxis: Pepcid Prognosis is guarded
--- NOTE | 2023-06-08 08:51 | XR ---
EXAM: XR chest 1V portable CLINICAL INDICATION:Female, 58 years old with history of afib,; PH COMPARISON: 05/27/2023 TECHNIQUE: Chest single view. FINDINGS: Lines/tubes/devices: None. Cardiomediastinum: Cardiac silhouette appears mildly enlarged. Unremarkable mediastinal silhouette. Vasculature: No increased pulmonary vasculature. Lungs/pleura: No consolidation, sizeable effusion, or visible pneumothorax. Mildly prominent interstitial lung winifred ings. Bones/soft tissues: Bony thorax appears grossly intact as seen. Regional soft tissues appear unremarkable. IMPRESSION: 1. Mild cardiomegaly with pulmonary vascular congestion. 2. Mildly prominent interstitial lung markings, may represent edema or pneumonitis superimposed on c hronic interstitial changes.
[2023-06-08] MEDS ORDERED: ERGOCALCIFEROL 1,250 MCG (50,000 IU) CAPSULE PO SCH (09:00)
[2023-06-08] MEDS: DULoxetine HCL 30 MG CAPSULE.DR PO SCH ×2 (10:04→20:23)
[2023-06-08] MEDS: LEVOTHYROXINE 88 MCG TAB PO SCH (10:04)
[2023-06-08] MEDS: APIXABAN 5 MG TAB PO SCH ×2 (10:04→20:23)
[2023-06-08] MEDS: buPROPion XL 150 MG TAB.ER.24H PO SCH (10:04)
[2023-06-08] MEDS: TORSEMIDE 20 MG TAB PO SCH (11:59)
[2023-06-08] MEDS: BUTALB/APAP/CAFF 50-325-40MG TAB PO PRN (14:34)
[2023-06-08] MEDS ORDERED: Potassium Replacement Protocol 1 EACH MISC MISCELLANE PRN (18:22)
--- NOTE | 2023-06-08 19:00 | P.CRDCN ---
History of Present Illness Consult date: 06/08/23 History of present illness: HISTORY OF PRESENTING ILLNESS 58-year-old female with past medical history of atrial fibrillation on anticoagulation, recently discharged one week ago because of atrial fibrillation. She also has history of sarcoidosis, hypertension, dyslipidemia, hypogonadism, mild coronary artery disease. Last week she had a heart catheterization which did not show any obstructive coronary artery disease, echocardiogram which showed normal LV size and systolic function. On admission lab shows creatinine 1.05, BNP 7000, troponins are negative, hemoglobin 12.3, BP 108/65, heart rate 106 beats a minute Normal TSH, chest x-ray shows minimal congestion REVIEW OF SYSTEMS 14 point review of system is negative except what is mentioned above in HPI. PHYSICAL EXAMINATION Vital signs reviewed. Head: Normocephalic. Eyes: Sclerae nonicteric. Neck: Brisk carotid upstroke, no jugular venous distention. Lungs: Clear to auscultation. Heart: Regular rate and rhythm, S1-S2, no S3, no murmur or rub. Abdomen: Soft nontender, positive bowel sounds no organomegaly. Extremities: No edema, intact distal pulses. Neuro: Alert, oritented, no focal deficits ASSESSMENT Paroxysmal atrial fibrillation, currently in A. fib RVR COPD , not in exacerbation Dyslipidemia Pulmonary sarcoid with erythema nodosum, Morbid obesity No cad and NO structural heart disease Normal TSH PLAN Start Eliquis 5 mg twice daily, start metoprolol 25 mg twice a day Start Flecainide 50mg BID. Increase to 100 mg tomorrow . Repeat ECG for qrs duration check Discontinue amitriptyline. Do not resume at discharge Hold amlodipine due to low blood pressure No need for repeat echo Past Medical History Past Medical History: Atrial Fibrillation, Asthma, Deep Vein Thrombosis (DVT), Eye Disorder, Fibromyalgia, GERD/Reflux, Hypertension, Pneumonia, Rheumatoid Arthritis (RA), Skin Disorder, Sleep Apnea/CPAP/BIPAP, Thyroid Disorder Additional Past Medical History / Comment(s): gout, sarcoidosis, glaucoma, NO CURRENT MEDS FOR GLAUCOMA, migraines, HX arrhythmia, no cpap used, degenerative disk disease, spinal stenosis, constipation, hx ulcer, hiatal hernia, dry spots and skin irritation- sores on legs erythemia nodosum History of Any Multi-Drug Resistant Organisms: None Reported Past Surgical History: Cholecystectomy, Heart Catheterization Additional Past Surgical History / Comment(s): lung biopsy, LEG AND ABDOMEN BIOPSY, rt cataract Past Anesthesia/Blood Transfusion Reactions: No Reported Reaction Past Psychological History: Anxiety, Depression Additional Psychological History / Comment(s): . Smoking Status: Current every day smoker Past Alcohol Use History: Rare Additional Past Alcohol Use History / Comment(s): started smoking age 15, smokes 1/2ppd Past Drug Use History: Marijuana Additional Drug Use History / Comment(s): Pt has medical marijuana, BOTH INHALED AND EDIBLE OR OIL. - Past Family History Mother Family Medical History: COPD, GERD/Reflux, Hypertension, Osteoarthritis (OA) Additional Family Medical History / Comment(s): Mother is 77 yrs old. Father Family Medical History: Hypertension Additional Family Medical History / Comment(s): Father is an amputee of the R leg. Father is 73 yrs old. Brother(s) History Unknown: Yes Family Medical History: Cancer Additional Family Medical History / Comment(s): leukemia Medications and Allergies Home Medications Medication Instructions Recorded Confirmed Type Montelukast [Singulair] 10 mg PO DAILY 01/29/14 06/07/23 History Pantoprazole Sodium [Protonix] 40 mg PO DAILY 01/29/14 06/07/23 History Butalb/Acetaminophen/Caffeine 1 tab PO Q8H PRN 02/15/14 06/07/23 History [Fioricet 50-325-40 mg Tablet] Albuterol Nebulized [Ventolin 2.5 mg INHALATION RT-QID PRN 08/09/15 06/07/23 History Nebulized] Furosemide [Lasix] 20 mg PO DAILY PRN 08/09/15 06/07/23 History DULoxetine HCL [Cymbalta] 30 mg PO BID 12/27/16 06/07/23 History buPROPion HCL [Wellbutrin XL] 150 mg PO DAILY 12/27/16 06/07/23 History Acetylcysteine [Nac] 500 mg PO DAILY 05/27/23 06/07/23 History Amitriptyline HCl [Elavil] 25 mg PO HS 05/27/23 06/07/23 History Apixaban [Eliquis] 5 mg PO BID 05/27/23 06/07/23 History Budesonide [Pulmicort] 0.5 mg INHALATION DIRECTED PRN 05/27/23 06/07/23 History Dextroamphetamine/Amphetamine 20 mg PO DIRECTED 05/27/23 06/07/23 History [Adderall] Ergocalciferol [Vitamin D2 (1250 1,250 mcg PO Q7D 05/27/23 06/07/23 History Mcg = 70854 Iu)] Levothyroxine Sodium [Synthroid] 88 mcg PO DAILY 05/27/23 06/07/23 History Metoclopramide [Reglan] 10 mg PO TID PRN 05/27/23 06/07/23 History Nystatin 100,000 Unit/gm Powd 1 applic TOPICAL BID PRN 05/27/23 06/07/23 History [Mycostatin Powder] Potassium Chloride ER [K-Dur 10] 10 meq PO DAILY PRN 05/27/23 06/07/23 History Prasterone (Dhea) [Dhea 25] 25 mg PO DAILY 05/27/23 06/07/23 History Super B-Complex 1 tab PO DAILY 05/27/23 06/07/23 History amLODIPine BESYLATE/BENAZEPRIL 1 cap PO DAILY 05/27/23 06/07/23 History [Lotrel 5-10 mg Capsule] Amiodarone [Cordarone] 200 mg PO BID 30 Days #60 tab 05/31/23 06/07/23 Rx Metoprolol Tartrate [Lopressor] 50 mg PO BID 30 Days #60 tab 05/31/23 06/07/23 Rx Allergies Allergy/AdvReac Type Severity Reaction Status Date / Time adhesive Allergy Rash/Hives Verified 06/07/23 19:19 Penicillins Allergy Dyspnea, Verified 06/07/23 19:19 itchy, hives Sulfa (Sulfonamide Allergy Confusion, Verified 06/07/23 19:19 Antibiotics) high fever Physical Exam Vitals: Vital Signs Temp Pulse Pulse Resp BP BP Pulse Ox 06/08/23 15:35 106 H 18 108/65 96 06/08/23 14:35 98.0 F 128 H 18 125/78 97 06/08/23 14:20 93 18 115/56 95 06/08/23 11:58 97 18 129/92 95 06/08/23 10:00 68 16 120/61 94 L 06/08/23 08:51 69 16 108/73 94 L 06/08/23 07:18 140 H 16 135/94 98 06/08/23 05:30 141 H 18 130/81 12/31/23 02:44 141 H 18 135/85 95 06/08/23 01:29 137 H 18 126/89 94 L 06/07/23 23:48 140 H 20 133/86 94 L 06/07/23 21:00 137 H 20 145/99 95 06/07/23 20:00 137 H 20 137/96 96 Intake and Output 06/08/23 06/08/23 06/08/23 06:59 14:59 22:59 Intake Total 108.5 600 Output Total 800 Balance 108.5 -200 Intake: Intake, IV Titration 108.5 Amount Diltiazem 125 mg In 108.5 Sodium Chloride 0.9% 100 ml @ 5 MG/HR 5 mls/hr IV .Q24H [facility] Rx#:[id number] Oral 600 Output: Urine 800 Other: Voiding Method Toilet Bedside Commode Weight 99.79 kg Results 06/08/23 03:00 06/08/23 03:00 Cardiac Enzymes 06/08/23 06/08/23 Range/Units 00:06 03:00 Troponin I <0.012 <0.012 (0.000-0.034) ng/mL CBC 06/08/23 Range/Units 03:00 WBC 9.8 (3.8-10.6) k/uL RBC 4.28 (3.80-5.40) m/uL Hgb 12.3 (11.4-16.0) gm/dL Hct 37.8 (34.0-46.0) % Plt Count 242 (150-450) k/uL Comprehensive Metabolic Panel 06/08/23 Range/Units 03:00 Sodium 142 (137-145) mmol/L Potassium 3.4 L (3.5-5.1) mmol/L Chloride 105 (98-107) mmol/L Carbon Dioxide 25 (22-30) mmol/L BUN 9 (7-17) mg/dL Creatinine 1.03 (0.52-1.04) mg/dL Glucose 131 H (74-99) mg/dL Calcium 9.0 (8.4-10.2) mg/dL Current Medications Generic Name Dose Route Start Last Admin Trade Name Freq PRN Reason Stop Dose Admin Acetaminophen/Butalbital/Caffeine 1 each 06/08/23 07:29 06/08/23 14:34 Butalb/Apap/Caff 50-325-40mg Tab PO 1 each Q8H PRN Administration Pain Albuterol Sulfate 2.5 mg 06/08/23 07:29 Albuterol Nebulized 2.5 Mg/3 Ml INHALATION RT-QID PRN Shortness Of Breath Apixaban 5 mg 06/08/23 09:00 06/08/23 10:04 Apixaban 5 Mg Tab PO 5 mg BID CLAIRE Administration Protocol Budesonide 0.5 mg 06/08/23 07:29 Budesonide 0.5 Mg/2 Ml Nebu INHALATION RT-BID PRN Shortness Of Breath Bupropion HCl 150 mg 06/08/23 09:00 06/08/23 10:04 Bupropion Xl 150 Mg Tab.Er.24h PO 150 mg DAILY CLAIRE Administration Duloxetine HCl 30 mg 06/08/23 09:00 06/08/23 10:04 Duloxetine Hcl 30 Mg Capsule.Dr PO 30 mg BID CLAIRE Administration Ergocalciferol 1,250 mcg 06/08/23 09:00 06/08/23 10:40 Ergocalciferol 1,250 Mcg (50,000 Iu) Capsule PO 1,250 mcg Q7D CLAIRE Administration Levothyroxine Sodium 88 mcg 06/08/23 09:00 06/08/23 10:04 Levothyroxine 88 Mcg Tab PO 88 mcg DAILY@0630 CLAIRE Administration Metoclopramide HCl 10 mg 06/08/23 07:29 Metoclopramide 10 Mg Tab PO TID PRN Nausea And Vomiting Metoprolol Tartrate 50 mg 06/08/23 08:00 06/08/23 07:49 Metoprolol Tartrate 50 Mg Tab PO 50 mg BID CLAIRE Administration Miscellaneous Information 1 each 06/08/23 18:22 Potassium Replacement Protocol 1 Each Misc MISCELLANE DAILY PRN Per Protocol Protocol Montelukast Sodium 10 mg 06/08/23 09:00 06/08/23 07:49 Montelukast 10 Mg Tab PO 10 mg DAILY CLAIRE Administration Naloxone HCl 0.2 mg 06/07/23 22:20 Naloxone 0.4 Mg/Ml 1 Ml Vial IV Q2M PRN Opioid Reversal Pantoprazole Sodium 40 mg 06/08/23 09:00 06/08/23 07:49 Pantoprazole 40 Mg Tablet PO 40 mg [id number] CLAIRE Administration Potassium Chloride 20 meq 06/08/23 20:00 Potassium Chloride Er 20 Meq Tab.Er PO 06/08/23 21:01 Q1HR CLAIRE Protocol Torsemide 20 mg 06/08/23 11:15 06/08/23 11:59 Torsemide 20 Mg Tab PO 20 mg DAILY CLAIRE Administration Intake and Output 06/08/23 06/08/23 06/08/23 06:59 14:59 22:59 Intake Total 108.5 600 Output Total 800 Balance 108.5 -200 Intake: Intake, IV Titration 108.5 Amount Diltiazem 125 mg In 108.5 Sodium Chloride 0.9% 100 ml @ 5 MG/HR 5 mls/hr IV .Q24H [facility] Rx#:[id number] Oral 600 Output: Urine 800 Other: Voiding Method Toilet Bedside Commode Weight 99.79 kg Patient Weight 06/09/23 06:59 Weight 99.79 kg 06/08/23 03:00 06/08/23 03:00
[2023-06-08] MEDS: POTASSIUM CHLORIDE ER 20 MEQ TAB.ER PO SCH ×2 (19:28→20:23)
[2023-06-08] MEDS ORDERED: FLECAINIDE 50 MG TAB PO SCH (21:00)
[2023-06-08] MEDS ORDERED: AMITRIPTYLINE HCL 25 MG TAB PO SCH (21:00)
[2023-06-09 03:48] LABS: Appearance,Urine Clear (Clear); Bilirubin,Urine Negative (Negative); Blood,Urine Negative (Negative); Color,Urine Colorless; Glucose,Urine (UA) Negative (Negative); Ketones,Urine Negative (Negative); Leukocyte Esterase,Urine Negative (Negative); Nitrite,Urine Negative (Negative); Protein,Urine Negative (Negative); Specific Gravity,Urine 1.007 (1.001-1.035); Urobilinogen,Urine <2.0 mg/dL (<2.0)
[2023-06-09] MEDS: FLECAINIDE 50 MG TAB PO SCH ×3 (05:39→20:06)
[2023-06-09] MEDS: LEVOTHYROXINE 88 MCG TAB PO SCH (06:36)
[2023-06-09] MEDS: PANTOPRAZOLE 40 MG TABLET PO SCH (06:36)
[2023-06-09] MEDS: APIXABAN 5 MG TAB PO SCH ×2 (08:27→20:06)
[2023-06-09] MEDS: MONTELUKAST 10 MG TAB PO SCH (08:27)
[2023-06-09] MEDS: DULoxetine HCL 30 MG CAPSULE.DR PO SCH ×2 (08:27→20:05)
[2023-06-09] MEDS: TORSEMIDE 20 MG TAB PO SCH (08:28)
[2023-06-09] MEDS: buPROPion XL 150 MG TAB.ER.24H PO SCH (08:28)
[2023-06-09] MEDS: METOPROLOL TARTRATE 50 MG TAB PO SCH ×2 (08:28→20:05)
[2023-06-09] MEDS: BUTALB/APAP/CAFF 50-325-40MG TAB PO PRN (08:33)
--- NOTE | 2023-06-09 16:34 | P.PN ---
Subjective Progress Note Date: 06/09/23 Progress note: Patient still reports on and off palpitations. She is currently in atrial flutter with rapid ventricular response. HISTORY OF PRESENTING ILLNESS 58-year-old female with past medical history of atrial fibrillation on anticoagulation, recently discharged one week ago because of atrial fibrillation. She also has history of sarcoidosis, hypertension, dyslipidemia, hypogonadism, mild coronary artery disease. Last week she had a heart catheterization which did not show any obstructive coronary artery disease, echocardiogram which showed normal LV size and systolic function. On admission lab shows creatinine 1.05, BNP 7000, troponins are negative, hemoglobin 12.3, BP 108/65, heart rate 106 beats a minute Normal TSH, chest x-ray shows minimal congestion REVIEW OF SYSTEMS 14 point review of system is negative except what is mentioned above in HPI. PHYSICAL EXAMINATION Vital signs reviewed. Head: Normocephalic. Eyes: Sclerae nonicteric. Neck: Brisk carotid upstroke, no jugular venous distention. Lungs: Clear to auscultation. Heart: Regular rate and rhythm, S1-S2, no S3, no murmur or rub. Abdomen: Soft nontender, positive bowel sounds no organomegaly. Extremities: No edema, intact distal pulses. Neuro: Alert, oritented, no focal deficits ASSESSMENT Paroxysmal atrial fibrillation, currently in AFlutter RVR, symptomatic COPD , not in exacerbation Dyslipidemia Pulmonary sarcoid with erythema nodosum, Morbid obesity No cad and NO structural heart disease Normal TSH PLAN Start Eliquis 5 mg twice daily, Continue metoprolol 25 mg twice a day Increase flecainide to 100 mg twice a day. If not converted, increase to 150 mg starting tonight If could not be cardioverted, plan for FRANCY cardioversion Discontinue amitriptyline. Do not resume at discharge Hold amlodipine due to low blood pressure No need for repeat echo Objective - Vital Signs Vital signs: Vital Signs Temp 98 F 06/09/23 12:45 Pulse 113 H 06/09/23 12:45 Resp 16 06/09/23 12:45 BP 115/82 06/09/23 12:45 Pulse Ox 96 06/09/23 12:45 FiO2 Intake & Output 06/08/23 06/09/23 06/09/23 18:59 06:59 18:59 Intake Total 600 450 Output Total 800 600 Balance -200 -600 450 Weight 99.79 kg Intake: Oral 600 450 Output: Urine 800 600 Other: Voiding Method Toilet Toilet Toilet Bedside Commode Bedside Commode Bedside Commode - Labs CBC & Chem 7: 06/08/23 03:00 06/08/23 03:00
[2023-06-10] MEDS: LEVOTHYROXINE 88 MCG TAB PO SCH (06:05)
[2023-06-10] MEDS: PANTOPRAZOLE 40 MG TABLET PO SCH (06:05)
[2023-06-10] MEDS: DULoxetine HCL 30 MG CAPSULE.DR PO SCH ×2 (08:58→19:48)
[2023-06-10] MEDS: APIXABAN 5 MG TAB PO SCH ×2 (08:58→19:48)
[2023-06-10] MEDS: MONTELUKAST 10 MG TAB PO SCH (08:58)
[2023-06-10] MEDS: METOPROLOL TARTRATE 50 MG TAB PO SCH ×3 (08:58→21:27)
[2023-06-10] MEDS: TORSEMIDE 20 MG TAB PO SCH (08:58)
[2023-06-10] MEDS: buPROPion XL 150 MG TAB.ER.24H PO SCH (08:58)
[2023-06-10] MEDS: FLECAINIDE 50 MG TAB PO SCH (08:58)
[2023-06-10] MEDS ORDERED: SODIUM CHLORIDE 0.9% 1,000 ML IV SCH (10:00)
--- NOTE | 2023-06-10 11:08 | P.PN ---
Subjective Progress Note Date: 06/10/23 Progress note: Patient still reports on and off palpitations. She is currently in atrial flutter with rapid ventricular response. HISTORY OF PRESENTING ILLNESS 58-year-old female with past medical history of atrial fibrillation on anticoagulation, recently discharged one week ago because of atrial fibrillation. She also has history of sarcoidosis, hypertension, dyslipidemia, hypogonadism, mild coronary artery disease. Last week she had a heart catheterization which did not show any obstructive coronary artery disease, echocardiogram which showed normal LV size and systolic function. On admission lab shows creatinine 1.05, BNP 7000, troponins are negative, hemoglobin 12.3, BP 108/65, heart rate 106 beats a minute Normal TSH, chest x-ray shows minimal congestion REVIEW OF SYSTEMS 14 point review of system is negative except what is mentioned above in HPI. PHYSICAL EXAMINATION Vital signs reviewed. Head: Normocephalic. Eyes: Sclerae nonicteric. Neck: Brisk carotid upstroke, no jugular venous distention. Lungs: Clear to auscultation. Heart: Regular rate and rhythm, S1-S2, no S3, no murmur or rub. Abdomen: Soft nontender, positive bowel sounds no organomegaly. Extremities: No edema, intact distal pulses. Neuro: Alert, oritented, no focal deficits ASSESSMENT Paroxysmal atrial fibrillation, currently in AFlutter RVR, symptomatic COPD , not in exacerbation Dyslipidemia Pulmonary sarcoid with erythema nodosum, Morbid obesity No cad and NO structural heart disease Normal TSH PLAN Start Eliquis 5 mg twice daily, Continue metoprolol 25 mg twice a day Increase flecainide to 100 mg twice a day. If not converted, increase to 150 mg starting tonight If could not be cardioverted, plan for FRANCY cardioversion Discontinue amitriptyline. Do not resume at discharge Hold amlodipine due to low blood pressure No need for repeat echo Objective - Vital Signs Vital signs: Vital Signs Temp 98 F 06/09/23 12:45 Pulse 89 06/10/23 08:00 Resp 16 06/10/23 08:00 BP 115/59 06/10/23 08:00 Pulse Ox 94 L 06/10/23 08:00 FiO2 Intake & Output 06/09/23 06/10/23 06/10/23 18:59 06:59 18:59 Intake Total 1595 540 120 Balance 1595 540 120 Intake: Oral 1595 540 120 Other: Voiding Method Toilet Toilet Bedside Commode Bedside Commode # Voids 1 - Labs CBC & Chem 7: 06/08/23 03:00 06/08/23 03:00
[2023-06-10 13:46] LABS: Glucose,Whole Blood 116 mg/dL (70-110)
[2023-06-10] MEDS ORDERED: SODIUM CHLORIDE 0.9% 1,000 ML IV ONE (14:07)
[2023-06-10] MEDS ORDERED: MIDAZOLAM 2 MG/2 ML VIAL IVP ONE (14:25)
[2023-06-10] MEDS ORDERED: LIDOCAINE 1% INJ 10MG/ML (20 ML MDV) ONE ×2 (15:05→15:58)
[2023-06-10] MEDS ORDERED: PHENYLEPHRINE-0.9% NACL SYG 1,000 MCG/10 ML SYRINGE ONE (15:58)
[2023-06-10] MEDS ORDERED: ePHEDrine 50 MG/ML 1 ML VIAL ONE (15:58)
[2023-06-10] MEDS ORDERED: GLYCOPYRROLATE 0.2 MG/ML 2 ML VIAL ONE (15:58)
[2023-06-10] MEDS ORDERED: SUCCINYLCHOLINE CHLORIDE 200 MG/10 ML VIAL IV ONE (15:58)
[2023-06-10] MEDS ORDERED: PROPOFOL 10 MG/ML 20 ML VIAL IV ONE (15:58)
[2023-06-10] MEDS ORDERED: HEPARIN SODIUM,PORCINE 10,000 UNIT/ML 1 ML VIAL ONE (15:58)
[2023-06-10] MEDS ORDERED: fentaNYL (PF) 50 MCG/ML 2 ML AMP ONE (15:58)
[2023-06-10] MEDS ORDERED: ROCURONIUM 10 MG/ML (5 ML VIAL) IV ONE (15:58)
[2023-06-10] MEDS ORDERED: NEOSTIGMINE 1 MG/ML 10 ML VIAL ONE (15:58)
[2023-06-10] MEDS ORDERED: DOPamine DRIP 800 MG/250 ML BAG IV ONE (15:58)
[2023-06-10] MEDS ORDERED: MIDAZOLAM 2 MG/2 ML VIAL ONE (15:58)
[2023-06-10] MEDS ORDERED: HEPARIN SODIUM (1,000 UNIT/ML) 1,000 UNIT in SODIUM CHLORIDE 0.9% 1,000 ML IRRIGATION ONE (16:20)
[2023-06-10] MEDS ORDERED: LIDOCAINE 1% INJ 10MG/ML (20 ML MDV) SQ ONE (16:29)
[2023-06-10] MEDS ORDERED: DOPamine DRIP 800 MG in DEXTROSE/WATER 1 250ML.BAG IV ONE (16:55)
--- NOTE | 2023-06-10 18:28 | P.EPPROC ---
- EP Procedure Note Electrophysiology Procedure Note: Diagnosis Typical atrial flutter with RVR on oral amiodarone Difficult rate control 2 weeks back she was in the hospital with A. fib with RVR and was treated with oral amiodarone Now she is in typical atrial flutter with RVR, symptomatic On anticoagulation with [place] 5 mg twice daily Result Successful ablation for typical atrial flutter with confirmed bidirectional block with differential pacing Recent history of atrial fibrillation Elevated LVEDP Normal coronary arteries Future plan Anticoagulation to continue Patient may be prediabetic Antihypertensive therapy tailored to reduce LVEDP Weight reduction Assessment for sleep apnea recommended Details Patient was brought to the EP lab in fasting state. Written informed consent was obtained prior to the procedure. The right and left groins were prepped and draped as a protocol and venous sheaths were placed in both groins Via these, intracardiac echo catheter, mapping and ablation catheter and diagnostic cath was placed Placed in the High Right Atrium, Jm Sinus, His Bundle Area and Right Ventricle The Patient Was in Atrial Flutter at the Start of the Study with a Cycle Length of about 300 Ms, Concentric Activation in the Jm Sinus Entrainment Mapping Was Performed from the Cavo Tricuspid Isthmus and Isthmus Dependency Was Proven Following that electrical cardioversion was performed successfully to sinus rhythm QRS width 123 ms, QT interval 346 ms AH 97 ms and HV interval 67 ms Sinus node recovery times were 1173, 1281 and 1308 ms AV node Wenckebach block 1420 ms Giuseppe response to Parahisian pacing was noted 3-D anatomic mapping was performed using intracardiac echo LV function is normal No evidence for left atrial appendage thrombus on intracardiac echo but smoke was noted in the enlarged left atrium IV heparin bolus 8000 given Electrical anatomic mapping was performed RF line of block was made from the tricuspid annulus to the eustachian ridge Complete line of block was made Following that with differential pacing, bidirectional block was proven IV dopamine was infused and pacing maneuvers were performed No other arrhythmias induced
[2023-06-10] MEDS: ACETAMINOPHEN TAB 325 MG TAB PO PRN (19:48)
--- NOTE | 2023-06-10 22:28 | P.PN ---
Subjective Progress Note Date: 06/10/23 she complains of dyspnea with exertion this morning and had an episode of chest pressure and sweats last night. Her HR remains elevated. Objective - Vital Signs Vital signs: Vital Signs Temp 97.7 F 06/10/23 19:34 Pulse 73 06/10/23 19:34 Resp 18 06/10/23 19:34 BP 120/66 06/10/23 19:34 Pulse Ox 96 06/10/23 19:34 FiO2 Intake & Output 06/10/23 06/10/23 06/11/23 06:59 18:59 06:59 Intake Total 540 1402 0 Balance 540 1402 0 Weight 99.79 kg Intake: IV 1282 Oral 540 120 0 Other: Voiding Method Toilet Toilet Bedside Commode Bedside Commode # Voids 1 2 1 - Exam Gen: well developed female in NAD CV: irregular, tachycardiac lungs: clear throughout - Labs CBC & Chem 7: 06/08/23 03:00 06/08/23 03:00 Labs: Abnormal Lab Results - Last 24 Hours (Table) 06/10/23 Range/Units 13:44 POC Glucose (mg/dL) 116 H (70-110) mg/dL Assessment and Plan Plan: Pt for ablation with Cardiology today. Continue remainder of medical regimen
[2023-06-11 04:18] VITALS: RESP 16
[2023-06-11] MEDS: LEVOTHYROXINE 88 MCG TAB PO SCH (06:17)
[2023-06-11] MEDS: PANTOPRAZOLE 40 MG TABLET PO SCH (06:17)
[2023-06-11] MEDS: ACETAMINOPHEN TAB 325 MG TAB PO PRN (06:17)
[2023-06-11] MEDS: MONTELUKAST 10 MG TAB PO SCH (08:49)
[2023-06-11] MEDS: APIXABAN 5 MG TAB PO SCH (08:49)
[2023-06-11] MEDS: TORSEMIDE 20 MG TAB PO SCH (08:49)
[2023-06-11] MEDS: DULoxetine HCL 30 MG CAPSULE.DR PO SCH (08:49)
[2023-06-11] MEDS: METOPROLOL TARTRATE 50 MG TAB PO SCH (08:49)
[2023-06-11] MEDS: buPROPion XL 150 MG TAB.ER.24H PO SCH (08:50)
[2023-06-11 08:55] VITALS: TEMP 98.4
[2023-06-11 11:43] VITALS: BP 119/68; PULSE 58
--- NOTE | 2023-06-11 14:27 | P.PN ---
Subjective Progress Note Date: 06/11/23 HISTORY OF PRESENTING ILLNESS 58-year-old female with past medical history of atrial fibrillation on anticoagulation, recently discharged one week ago because of atrial fibrillation . She also has history of sarcoidosis, hypertension, dyslipidemia, hypogonadism, mild coronary artery disease. Last week she had a heart catheterization which did not show any obstructive coronary artery disease, echocardiogram which showed normal LV size and systolic function. On admission lab shows creatinine 1.05, BNP 7000, troponins are negative, hemoglobin 12.3, BP 108/65, heart rate 106 beats a minute Normal TSH, chest x-ray shows minimal congestion 1/3 Yesterday, patient underwent atrial flutter ablation. Patient remains in sinus rhythm this morning. Patient states that she is feeling better. Bilateral groin sites show no signs of hematoma infection. Patient also has history of obstructive sleep apnea not using CPAP and she's been encouraged to follow up outpatient to have this addressed. Also recommend decreasing Cymbalta to daily instead of twice daily. PHYSICAL EXAMINATION Vital signs reviewed. Head: Normocephalic. Eyes: Sclerae nonicteric. Neck: Brisk carotid upstroke, no jugular venous distention. Lungs: Clear to auscultation. Heart: Regular rate and rhythm, S1-S2, no S3, no murmur or rub. Abdomen: Soft nontender, positive bowel sounds no organomegaly. Extremities: No edema, intact distal pulses. Neuro: Alert, oritented, no focal deficits ASSESSMENT Paroxysmal atrial fibrillation, currently in AFlutter RVR, symptomatic COPD , not in exacerbation Dyslipidemia Pulmonary sarcoid with erythema nodosum, Morbid obesity No cad and NO structural heart disease Normal TSH PLAN Start Eliquis 5 mg twice daily, Transition Lopressor to Toprol-XL 50 mg daily and resume patient on amlodipine/benazepril at discharge. Decrease Cymbalta to once daily dosing Also recommended patient not resume amitriptyline at the time of discharge which she states she will try to avoid. Follow-up for obstructive sleep apnea as outpatient Patient is cleared from cardiology for discharge. Follow up in the office with Dr. Lee in 1 week. Nurse practitioner note has been reviewed, I agree with the documented findings and plan of care. Patient was seen and examined. Yesterday, patient underwent Objective - Vital Signs Vital signs: Vital Signs Temp 98.4 F 06/11/23 08:00 Pulse 63 06/11/23 08:00 Resp 16 06/11/23 08:00 BP 118/66 06/11/23 08:00 Pulse Ox 93 L 06/11/23 08:00 FiO2 Intake & Output 06/10/23 06/11/23 06/11/23 18:59 06:59 18:59 Intake Total 1402 0 Balance 1402 0 Weight 99.79 kg Intake: IV 1282 Oral 120 0 Other: Voiding Method Toilet Toilet Bedside Commode # Voids 2 1 - Labs CBC & Chem 7: 06/08/23 03:00 06/08/23 03:00 Labs: Abnormal Lab Results - Last 24 Hours (Table) 06/10/23 Range/Units 13:44 POC Glucose (mg/dL) 116 H (70-110) mg/dL
[2023-06-12] MEDS ORDERED: METOPROLOL SUCCINATE (ER) 25 MG TAB.ER.24H PO SCH (09:00)
== END 2023-06-11 13:35 | disposition home or self-care (01) | DRG 274 ==
LOC: EC 16:54 → 3SCARD 22:20 → OBSVTOIN 06-09 09:00
PROVIDERS: ADMIT Family Medicine; ATTEND Family Medicine
PROC: 3E033RZ Introduction of Antiarrhythmic into Peripheral Vein, Percutaneous Approach (ICD-10-PCS; 2023-06-07)
PROC: 02583ZZ Destruction of Conduction Mechanism, Percutaneous Approach (ICD-10-PCS; principal; 2023-06-10 15:30)
PROC: 3E053XZ Introduction of Vasopressor into Peripheral Artery, Percutaneous Approach (ICD-10-PCS; principal; 2023-06-10 15:30)
PROC: 4A0234Z Measurement of Cardiac Electrical Activity, Percutaneous Approach (ICD-10-PCS; principal; 2023-06-10 15:30)
PROC: 4A023FZ Measurement of Cardiac Rhythm, Percutaneous Approach (ICD-10-PCS; principal; 2023-06-10 15:30)
PROC: 5A2204Z Restoration of Cardiac Rhythm, Single (ICD-10-PCS; principal; 2023-06-10 15:30)
PROC: 02K83ZZ Map Conduction Mechanism, Percutaneous Approach (ICD-10-PCS; principal; 2023-06-10 15:30)
DX: I48.3 Typical atrial flutter (principal); L52 Erythema nodosum; D86.0 Sarcoidosis of lung; N18.30 Chronic kidney disease, stage 3 unspecified; E66.01 Morbid (severe) obesity due to excess calories; I48.0 Paroxysmal atrial fibrillation; M06.9 Rheumatoid arthritis, unspecified; I12.9 Hypertensive chronic kidney disease with stage 1 through stage 4 chronic kidney disease, or unspecified chronic kidney disease; G47.33 Obstructive sleep apnea (adult) (pediatric); E78.5 Hyperlipidemia, unspecified; K21.9 Gastro-esophageal reflux disease without esophagitis; H40.9 Unspecified glaucoma; F32.A Depression, unspecified; F41.9 Anxiety disorder, unspecified; J44.89 Other specified chronic obstructive pulmonary disease; I25.10 Atherosclerotic heart disease of native coronary artery without angina pectoris; M79.7 Fibromyalgia; Z68.34 Body mass index [BMI] 34.0-34.9, adult; F17.210 Nicotine dependence, cigarettes, uncomplicated; Z71.6 Tobacco abuse counseling; Z79.01 Long term (current) use of anticoagulants; Z79.890 Hormone replacement therapy; Z79.899 Other long term (current) drug therapy; Z79.51 Long term (current) use of inhaled steroids; Z86.718 Personal history of other venous thrombosis and embolism; Z88.0 Allergy status to penicillin; Z88.2 Allergy status to sulfonamides; Z82.49 Family history of ischemic heart disease and other diseases of the circulatory system
CPT/HCPCS: 36415; 71045; 80048; 80053; 81003; 83735; 83880; 84100; 84443; 84484; 85025; 85610; 85730; 93005; 93623; 93653; 93662; 94760; 96365; 96366; 96375; 99291